=== PATIENT | male | born 1950 | race Caucasian/White ===

== ENCOUNTER → 2021-06-03 13:49 | Outpatient (BNVA) | payer MEDICARE, SELFPAY | PROVIDERS: PCP Family Medicine Adult Medicine; Visit Provider Family Medicine Adult Medicine | DX: E66.01 Morbid (severe) obesity due to excess calories (principal); Z68.41 Body mass index [BMI] 40.0-44.9, adult; I10 Essential (primary) hypertension; N40.0 Benign prostatic hyperplasia without lower urinary tract symptoms; M17.0 Bilateral primary osteoarthritis of knee; Z79.899 Other long term (current) drug therapy | CPT/HCPCS: 80053; 80061; 83036; 84443; 85025; G0103 ==

== ENCOUNTER → 2021-06-24 15:23 | Outpatient (BNVA) | payer MEDICARE, SELFPAY | PROVIDERS: PCP Family Medicine Adult Medicine; Referring Provider Family Medicine Adult Medicine; Visit Provider Specialist | DX: M17.0 Bilateral primary osteoarthritis of knee (principal) | CPT/HCPCS: 73560; 73565 ==

== ENCOUNTER → 2021-08-28 14:33 | Outpatient (BNVA) | payer MEDICARE, SELFPAY | PROVIDERS: PCP Family Medicine Adult Medicine; Visit Provider Family Medicine Adult Medicine | DX: M25.369 Other instability, unspecified knee (principal); N39.0 Urinary tract infection, site not specified; R73.03 Prediabetes; I10 Essential (primary) hypertension; E78.5 Hyperlipidemia, unspecified | CPT/HCPCS: 80053; 81000; 83036; 84443; 85025; G0103 ==

== ENCOUNTER → 2021-10-13 17:05 | Outpatient (BNVA) | payer MEDICARE, SELFPAY | PROVIDERS: PCP Family Medicine Adult Medicine; Visit Provider Urology | DX: N35.919 Unspecified urethral stricture, male, unspecified site (principal) | CPT/HCPCS: 81003; 87635 ==

== ENCOUNTER 2021-10-18 20:06 | Inpatient (IN) | payer MEDICARE, SELFPAY ==
--- NOTE | 2021-10-18 19:25 | XRR_ITS ---
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 Views: 1 view. COMPARISON: CR XR knees AP WB w BI lmt ORTH 06/24/2021 3:29 PM FINDINGS: Lungs: Unremarkable. No consolidation. Pleural spaces: Unremarkable. No pleural effusion. No pneumothorax. Heart/Mediastinum: Unremarkable. No cardiomegaly. Bones/joints: Unremarkable. XR/XR chest 1V portable [id number] IMPRESSION: No acute findings.
--- NOTE | 2021-10-18 19:25 | CTR_ITS ---
PROCEDURE INFORMATION: Exam: CT Head Without Contrast Exam date and time: 10/18/2021 7:25 PM Age: 71 years old Clinical indication: Weakness, extremity and weakness, facial; Right; Additional info: Symptoms of acute stroke TECHNIQUE: Imaging protocol: Computed tomography of the head without contrast. Radiation optimization: All CT scans at this facility use at least one of these dose optimization techniques: automated exposure control; mA and/or kV adjustment per patient size (includes targeted exams where dose is matched to clinical indication); or iterative reconstruction. Other technique: STROKE PROTOCOL was implemented. COMPARISON: CR XR knees AP WB w BI lmt ORTH 06/24/2021 3:29 PM RADIATION DOSE METRICS: Total DLP (mGy-cm): 928.27 FINDINGS: Brain: There is moderate cerebral atrophy. There is moderate diffuse heterogeneity of the white matter attenuation, consistent with chronic white matter ischemic changes. No intracranial hemorrhage. No midline shift of the brain. No intracranial mass. Cerebral ventricles: No ventriculomegaly. Paranasal sinuses: Visualized sinuses are unremarkable. No fluid levels. Mastoid air cells: Visualized mastoid air cells are well aerated. Bones/joints: Unremarkable. No acute fracture. Soft tissues: Unremarkable. CT/CT head wo con* [id number] IMPRESSION: Negative for acute intracranial abnormality. ASSESSMENT: ASPECTS ([place] Stroke Program Early CT Score) is 10.
--- NOTE | 2021-10-18 19:25 | CTR_ITS ---
PROCEDURE INFORMATION: Exam: CT Angiography Head With Contrast, Arteriography Exam date and time: 10/18/2021 7:25 PM Age: 71 years old Clinical indication: Patient HX: RT sided weakness, extremities and facial TECHNIQUE: Imaging protocol: Computed tomography angiography of the head with contrast. Exam focused on the arteries. 3D rendering (Not supervised by radiologist): MIP and/or 3D reconstructed images were created by the technologist. Radiation optimization: All CT scans at this facility use at least one of these dose optimization techniques: automated exposure control; mA and/or kV adjustment per patient size (includes targeted exams where dose is matched to clinical indication); or iterative reconstruction. Contrast material: VISI; Contrast volume: 95 ml; Contrast route: INTRAVENOUS (IV); COMPARISON: CT head wo con* [id number] 10/18/2021 7:25 PM RADIATION DOSE METRICS: Total DLP (mGy-cm): 2631.54 FINDINGS: ANTERIOR CIRCULATION: Right internal carotid artery: Unremarkable. Intracranial segment is patent with no significant stenosis. No aneurysm. Right middle cerebral artery: Unremarkable. No occlusion or significant stenosis. No aneurysm. Right anterior cerebral artery: Unremarkable. No occlusion or significant stenosis. No aneurysm. Left internal carotid artery: Unremarkable. Intracranial segment is patent with no significant stenosis. No aneurysm. Left middle cerebral artery: Unremarkable. No occlusion or significant stenosis. No aneurysm. Left anterior cerebral artery: Moderate severity short segment stenosis in the A2 segment of the left anterior cerebral artery. No occlusion. POSTERIOR CIRCULATION: Right vertebral artery: Unremarkable. No occlusion or significant stenosis. No aneurysm. Left vertebral artery: Unremarkable. No occlusion or significant stenosis. No aneurysm. Basilar artery: Unremarkable. No occlusion or significant stenosis. No aneurysm. Right posterior cerebral artery: Unremarkable. No occlusion or significant stenosis. No aneurysm. Left posterior cerebral artery: Unremarkable. No occlusion or significant stenosis. No aneurysm. Brain: No definite mass, mass effect, or midline shift. Cerebral ventricles: No ventriculomegaly. Bones/joints: Unremarkable. No acute fracture. Soft tissues: Unremarkable. PROCEDURE INFORMATION: Exam: CT Angiography Neck With Contrast Exam date and time: 10/18/2021 7:25 PM Age: 71 years old Clinical indication: Patient HX: RT sided weakness, extremities and facial TECHNIQUE: Imaging protocol: Computed tomography angiography of the neck with contrast. 3D rendering (Not supervised by radiologist): MIP and/or 3D reconstructed images were created by the technologist. Radiation optimization: All CT scans at this facility use at least one of these dose optimization techniques: automated exposure control; mA and/or kV adjustment per patient size (includes targeted exams where dose is matched to clinical indication); or iterative reconstruction. Contrast material: VISI; Contrast volume: 95 ml; Contrast route: INTRAVENOUS (IV); COMPARISON: CT head wo con* [id number] 10/18/2021 7:25 PM RADIATION DOSE METRICS: Total DLP (mGy-cm): 2631.54 FINDINGS: Right common carotid artery: No stenosis. No dissection or occlusion. Right internal carotid artery: No stenosis of the extracranial segment. No dissection or occlusion. Right external carotid artery: No occlusion or stenosis of the origin. Left common carotid artery: No stenosis. No dissection or occlusion. Left internal carotid artery: No stenosis of the extracranial segment. No dissection or occlusion. Left external carotid artery: No occlusion or stenosis of the origin. Right vertebral artery: No stenosis. No dissection or occlusion. Left vertebral artery: No stenosis. No dissection or occlusion. Soft tissues: Normal. No significant soft tissue swelling. Bones/joints: No acute fracture. CT/CT angio headneck* [id number] IMPRESSION: Negative for intracranial large arterial vessel occlusion. IMPRESSION: No carotid artery stenosis or occlusion. REFERENCES: NASCET CRITERIA. The degree of internal carotid artery stenosis is based on NASCET criteria. Normal is no stenosis. Mild is less than 50% stenosis. Moderate is 50-69% stenosis. Severe is 70% to 99% stenosis. Total occlusion is no detectable patent lumen.
--- NOTE | 2021-10-18 19:35 | ED_ITS ---
HPI - Neuro Symptoms/Deficit General: Chief Complaint: Neuro Symptoms/Deficit Stated Complaint: stroke History of Present Illness: HPI Narrative: 71-year-old gentleman with no prior history of stroke or coronary disease. He presents after having symptoms starting around 430 this afternoon. He began to get weak in his right arm, which persisted to some degree. After he got home, he had trouble speaking. He notes his thoughts were plain and normal, but he was having trouble expressing himself. The symptoms have resolved essentially now. Time: 19:20 Last Observed Normal: 16:30 Timing confirmed by: other Location: speech and right arm History of same: No Severity: moderate Quality: weak and improving Relieving factors: none Exacerbating factors: none Context: sudden onset On Anticoagulants: No Associated symptoms: Reports weakness; Deny chest pain, cough, diaphoresis, fevers/chills, headache(s), nausea, seizures, short of breath, syncope or vomiting Treatments Prior to Arrival: none Review of Systems Const: Denies: diaphoresis Card: Denies: chest pain or syncope GI: Denies: nausea or vomiting Neuro: Denies: headache(s) PFSH ED 2 PFSH: Medical History Anxiety about health BPH (benign prostatic hyperplasia) Dyslipidemia (high LDL; low HDL) Hypertension Knee gives out Morbid obesity with BMI of 40.0-44.9, adult Osteoarthritis of both knees Pre-diabetes Urethral stricture UTI (urinary tract infection) Surgical History Hx of appendectomy Family History Father , AT AGE 82 Brain tumor Mother , AT AGE 63 Bleeding disorder Other CAD (coronary artery disease) Cancer Diabetes Hyperlipidemia Hypertension Lung disease Psychiatric illness Stroke Social History Alcohol intake: never Marital status: Number of children: 3 Number of grandchildren: 4 Current occupational status: retired History of recent travel: No NIH stroke score NIHSS: Level Of Consciousness - 1a: 0 Level Of Consciousness Questions - 1b: Both Correct Level Of Consciousness Commands - 1c: Both Correct Best Gaze - 2: Normal Visual Posey - 3: No Visual Loss Facial Palsy - 4: Minor Paralysis Motor Arm Right - 5: No Drift Motor Arm Left - 5: No Drift Motor Leg Right - 6: Drift Motor Leg Left - 6: No Drift Limb Ataxia - 7: Absent Sensory - 8: Normal Best Language - 9: No Aphasia Dysarthia - 10: Normal Extinction And Inattention - 11: 0 Score: Total Score: 2 Physical Exam Const: COMMON NORMALS: no acute distress, patient oriented x3 and alert GENERAL APPEARANCE: cooperative HENMT: COMMON NORMALS: normocephalic and atraumatic HEAD & SCALP: normocephalic and atraumatic Eye: COMMON NORMALS: Equal, round and reactive pupils present, EOMs intact bilaterally and conjunctivae normal CONJUNCTIVA: Yes conjunctivae normal PUPIL: Yes Equal, round and reactive pupils present Chest: COMMONS NORMALS: normal inspection of the chest Resp: COMMON NORMALS: normal respiratory effort, No use of accessory muscles and clear to auscultation bilaterally AUSCULTATION: clear to auscultation bilaterally Cardio: COMMON NORMALS: regular rate and regular rhythm RATE: regular rate RHYTHM: regular rhythm GI: COMMON NORMALS: Normal to inspection, nondistended, normoactive bowel sounds present and Soft to palpation PALPATION: Yes Soft to palpation Neuro: COMMON NORMALS: patient oriented x3 SENSORIUM/ORIENTATION: Yes alert Course Consultations: Consultation #1: micha Time: 19:50 Consultation #2: micha Time: 20:41 Consultation #3: chris Time: 21:57 Vital Signs: Vital signs: Vital Signs Temperature 97.6 F 10/18/21 19:45 Pulse Rate 80 10/18/21 21:48 Respiratory Rate 21 H 10/18/21 21:48 Blood Pressure 126/70 10/18/21 21:48 Pulse Oximetry 98 10/18/21 21:48 MDM - Neuro Symptoms/Deficit MDM Narrative: Medical decision making narrative: On initial exam, symptoms are essentially resolved. He had an NIH of 2, 1 for very minor right lower extremity weakness, and right sided facial droop that is minor. He was able to walk to the bathroom using a walker, which he usually does. At approximately 8:39 PM I was called into the room. The patient had sudden loss of strength to the right upper extremity, right lower extremity and had expressive aphasia again. I spoke with neurology, and as we are still in the 4.5-hour window, it was decided to use TPA to treat this patient given ongoing symptoms his CT of the head is negative. CTA does not reveal an occlusion that is significant. His white blood cell count is 13.3 with no shift. His other laboratory is essentially unremarkable. His coag studies are normal. With return of significant stroke symptoms, it was felt that giving the patient the best caroline nce of recovery would be TPA at this point. Discussed again with family, including risks including hemorrhage and potential . The patient and his agreed to give the medication. 22:06 TPA is in. Symptoms are essentially resolved. He has back to a NIH of 2 or less. Blood pressure is 155/76. Heart rate 88 sinus. Saturation 95%. He will go to the ICU. Lab Data: Labs: Lab Results 10/18/21 10/18/21 10/18/21 18:00 18:00 18:00 WBC 13.3 10^3/uL H 10 ^3/uL (4.0-10.0) RBC 5.83 10^6/uL H 10 ^6/uL (4.1-5.3) Hgb 16.6 g/dL g/dL (11.7-16.6) Hct 51.9 % % (42.0-52.0) MCV 89.0 fl fl (80-94) MCH 28.5 pg pg (28.0-34.0) MCHC 32.0 g/dL g/dL (30.0-36.0) RDW 13.1 % % (12.1-15.1) Plt Count 352 10^3/cmm 10^3 /cmm (130-400) MPV 11.5 fL H fL (7.4-10.4) Neut % (Auto) 74.3 % % Lymph % (Auto) 14.6 % % [place] % (Auto) 7.4 % % Eos % (Auto) 2.1 % % Baso % (Auto) 0.8 % % Neut # (Auto) 9.89 10^3/uL H 10 ^3/uL (1.8-7.7) Lymph # (Auto) 1.9 10^3/uL 10^3/ uL (0.8-4.8) [place] # (Auto) 1.0 10^3/uL H 10^ 3/uL (0.2-0.9) Eos # (Auto) 0.3 10^3/uL 10^3/ uL (0.0-0.8) Baso # (Auto) 0.1 10^3/uL 10^3/ uL (0.0-0.1) Nucleated RBC % (a uto) 0 % % Nucleated RBCs # 0.0 /100WBC /100W BC PT INR APTT Sodium 139 mmol/L mmol/L (136-145) Potassium 4.1 mmol/L mmol/L (3.5-5.1) Chloride 98 mmol/L mmol/L (98-107) Carbon Dioxide 26 mmol/L mmol/L (22-29) Anion Gap 19.1 H (5-19) BUN 18 mg/dL mg/dL (8-23) Creatinine 1.0 mg/dL mg/dL (0.7-1.2) GFR Calculation Not Reportable Glucose 70 mg/dL mg/dL (65-115) Calculated Osmolal ity 288 mOsm/kg mOsm/ kg (285-295) Calcium 8.8 mg/dL mg/dL (8.5-10.5) Total Bilirubin 0.4 mg/dL mg/dL (0.15-1.2) AST 12 U/L U/L (0-40) ALT 13 U/L U/L (0-41) Alkaline Phosphata se 71 IU/L IU/L (40-130) Troponin T Baselin e 11 ng/L ng/L (0-15) Troponin T 120 Min [place] Delta Troponin T Total Protein 6.1 g/dL L g/dL (6.6-8.7) Albumin 4.0 g/dL g/dL (3.5-5.2) Globulin 2.1 g/dL g/dL (1.3-4.6) Urine Color Urine Appearance Urine pH Ur Specific Gravit y Urine Protein Urine Glucose (UA) Urine Ketones Urine Blood Urine Nitrate Urine Bilirubin Urine Urobilinogen Ur Leukocyte Di ase Urine Opiates Scre en Ur Barbiturates Sc reen Ur Phencyclidine S crn Ur Amphetamines Sc reen U Benzodiazepines Scrn Urine Cocaine Scre en U Marijuana (THC) Screen 10/18/21 10/18/21 10/18/21 19:50 19:50 19:50 WBC RBC Hgb Hct MCV MCH MCHC RDW Plt Count MPV Neut % (Auto) Lymph % (Auto) [place] % (Auto) Eos % (Auto) Baso % (Auto) Neut # (Auto) Lymph # (Auto) [place] # (Auto) Eos # (Auto) Baso # (Auto) Nucleated RBC % (a uto) Nucleated RBCs # PT 14.20 SECONDS SEC ONDS (12.1-14.9) INR 1.06 (0.8-1.2) APTT 28.0 SECONDS SECO NDS (23.9-36.7) Sodium Potassium Chloride Carbon Dioxide Anion Gap BUN Creatinine GFR Calculation Glucose Calculated Osmolal ity Calcium Total Bilirubin AST ALT Alkaline Phosphata se Troponin T Baselin e Troponin T 120 Min [place] Delta Troponin T Total Protein Albumin Globulin Urine Color Yellow (Yellow) Urine Appearance Clear (CLEAR) Urine pH 5 (5-7) Ur Specific Gravit y 1.020 (1.005-1.030) Urine Protein Neg (Negative) Urine Glucose (UA) Norm (Normal) Urine Ketones Negative (Negative) Urine Blood Neg (Negative) Urine Nitrate Negative (Negative) Urine Bilirubin 1+ H (Negative) Urine Urobilinogen 1 mg/dL H mg/dL (Negative) Ur Leukocyte Di ase Negative (Negative) Urine Opiates Scre en Negative ng/mL ng /mL (Negative) Ur Barbiturates Sc reen Positive ng/mL H ng/mL (Negative) Ur Phencyclidine S crn Negative ng/mL ng /mL (Negative) Ur Amphetamines Sc reen Negative ng/mL ng /mL (Negative) U Benzodiazepines Scrn Negative ng/mL ng /mL (Negative) Urine Cocaine Scre en Negative ng/mL ng /mL (Negative) U Marijuana (THC) Screen Negative ng/mL ng /mL (Negative) 10/18/21 20:06 WBC RBC Hgb Hct MCV MCH MCHC RDW Plt Count MPV Neut % (Auto) Lymph % (Auto) [place] % (Auto) Eos % (Auto) Baso % (Auto) Neut # (Auto) Lymph # (Auto) [place] # (Auto) Eos # (Auto) Baso # (Auto) Nucleated RBC % (a uto) Nucleated RBCs # PT INR APTT Sodium Potassium Chloride Carbon Dioxide Anion Gap BUN Creatinine GFR Calculation Glucose Calculated Osmolal ity Calcium Total Bilirubin AST ALT Alkaline Phosphata se Troponin T Baselin e Troponin T 120 Min [place] 9.85 ng/L ng/L (0-15) Delta Troponin T Not Reportable Total Protein Albumin Globulin Urine Color Urine Appearance Urine pH Ur Specific Gravit y Urine Protein Urine Glucose (UA) Urine Ketones Urine Blood Urine Nitrate Urine Bilirubin Urine Urobilinogen Ur Leukocyte Di ase Urine Opiates Scre en Ur Barbiturates Sc reen Ur Phencyclidine S crn Ur Amphetamines Sc reen U Benzodiazepines Scrn Urine Cocaine Scre en U Marijuana (THC) Screen Critical Care Time Critical Care Time: Critical Care Time: Yes Total Critical Care Time: 65 Attestation: This case had a high probability of a clinically significant, sudden, or life threatening deterioration of this patient's condition which required my full and direct attention, intervention and personal management. Time excludes any procedures performed on the patient. Discharge Plan Discharge Patient Disposition: Admitted As Inpatient Admit Provider: Romina Núñez Clinical Impression: Cerebrovascular accident Qualifiers: CVA mechanism: thrombosis Precerebral and cerebral artery: middle cerebral anali ry Laterality of affected vessel: left Qualified Code(s): I63.312 - Cerebral infarction due to thrombosis of left middle cerebral artery Condition: Stable Coding Level of Care Code ED Sales And Service Technician for g Fwd Exam Detailed
[2021-10-18] MEDS: iodixanol 320 mg/mL 100mL Btl IV (19:39)
[2021-10-18 19:45] VITALS: BP 145/92; PULSE 70; RESP 18; TEMP 36.4; O2SAT 98; BMI 44.6
[2021-10-18 20:07] LABS: Basophils # 0.1 10^3/uL (0.0-0.1); Basophils % 0.8 %; Eosinophils # 0.3 10^3/uL (0.0-0.8); Eosinophils % 2.1 %; Hematocrit 51.9 % (42.0-52.0); Hemoglobin 16.6 g/dL (11.7-16.6); Lymphocytes # 1.9 10^3/uL (0.8-4.8); Lymphocytes % 14.6 %; Mean Corpuscular Hemoglobin 28.5 pg (28.0-34.0); Mean Platelet Volume 11.5 fL (7.4-10.4); Monocytes % 7.4 %; Neutrophils # 9.89 10^3/uL (1.8-7.7); Neutrophils % 74.3 %; Nucleated Red Blood Cells % 0 %; Platelet Count 352 10^3/cmm (130-400); Red Blood Count 5.83 10^6/uL (4.1-5.3); Red Cell Distribution Width 13.1 % (12.1-15.1); White Blood Count 13.3 10^3/uL (4.0-10.0)
[2021-10-18 20:10] LABS: Add Urine Microscopic? NO; Charge for UA Resulting for Rev
[2021-10-18 20:15] LABS: Bilirubin Urine 1+ (Negative); Blood Urine Neg (Negative); Glucose Urine UA Norm (Normal); Ketones Urine Negative (Negative); Leukocyte Esterase Urine Negative (Negative); Nitrate Urine Negative (Negative); Protein Urine Neg (Negative); Urine Appearance Clear (CLEAR); Urine Color Yellow (Yellow); Urobilinogen Urine 1 mg/dL (Negative); pH Urine 5 (5-7)
[2021-10-18 20:22] LABS: Amphetamines Screen Urine Negative (Negative); Barbiturates Screen Urine Positive (Negative); Benzodiazepines Screen Urine Negative (Negative); Cocaine Screen Urine Negative (Negative); Opiate Screen Urine Negative (Negative); PCP Screen Urine Negative (Negative); THC Screen Urine Negative (Negative)
[2021-10-18 20:27] LABS: INR 1.06 (0.8-1.2)
[2021-10-18 20:28] LABS: Troponin 5 2HR 9.85 ng/L (0-15)
[2021-10-18 20:36] LABS: Troponin(5th) Baseline 11 ng/L (0-15)
[2021-10-18 20:37] LABS: Alanine Aminotransferase 13 U/L (0-41); Alkaline Phosphatase 71 IU/L (40-130); Anion Gap 19.1 (5-19); Aspartate Amino Transferase 12 U/L (0-40); Blood Urea Nitrogen 18 mg/dL (8-23); Calcium 8.8 mg/dL (8.5-10.5); Carbon Dioxide 26 mmol/L (22-29); Chloride 98 mmol/L (98-107); Globulin 2.1 g/dL (1.3-4.6); Glucose 70 mg/dL (65-115); Osmolality Calculated 288 mOsm/kg (285-295); Potassium 4.1 mmol/L (3.5-5.1); Sodium 139 mmol/L (136-145); Total Bilirubin 0.4 mg/dL (0.15-1.2); Total Protein 6.1 g/dL (6.6-8.7)
[2021-10-18 21:10] VITALS: BP 153/75; PULSE 69; RESP 20; O2SAT 96
[2021-10-18 21:25] VITALS: BP 116/74; PULSE 70; RESP 18; O2SAT 97
[2021-10-18] MEDS: sodium chloride 0.9% 500 ML 999 ML IV (21:25)
--- NOTE | 2021-10-18 21:26 | ECG_ITS ---
[facility] Test Date: 2021-10-18 Pat Name: Olegario Bai Department: Room: Gender: Male Rn Progressive Care: : 1950 Requested By: Bienvenido Julian Order Number: [id number] Reading MD: RAFAEL MILLAN Measurements Intervals [place] Rate: 66 P: 53 NH: 157 QRS: -10 QRSD: 98 T: 29 QT: 409 QTc: 431 Interpretive Statements SINUS RHYTHM VOLTAGE CRITERIA FOR LVH [MEETS CRITERIA IN ONE OF: R(aVL), S(V1), R(V5), R(V5/V6)+S(V1)] No previous ECG available for comparison Electronically Signed On 10-19-2021 19:04:58 EM PHYSICIAN by RAFEAL MILLAN [id number]
[2021-10-18 21:48] VITALS: BP 126/70; PULSE 80; RESP 21; O2SAT 98
[2021-10-18 22:00] VITALS: BP 153/96; PULSE 84; RESP 22; O2SAT 97
--- NOTE | 2021-10-18 22:55 | PM.HP ---
Providers/Chief Complaint Admitting Physician: Romina Núñez MD Primary Care Provider: Kenny Adams MD Chief Complaint: stroke History of Present Illness Olegario Bai is a 71 year old male with PMH HTN presented to ER with weakness in his right arm, motor aphasia starting at 4:30 pm which was transient and then started to improve. AT Er presentation NIHSS noted to be 2. CT head and CTA head without acute stroke or thrombus. At approximately 8:39 PM he again started to experience sudden loss of strength to the right upper extremity, right lower extremity and had expressive aphasia again. Neurology was consulted and since patient was still in 4.5-hour window, he received tPA, completed at ~10pm. His symptoms then improved except for mild facial droop. Blood pressure 126/70, HR 80. Patient is being admitted to ICU level of care for post tPA monitoring. Review of Systems General: Reports: 10 or more systems reviewed and unremarkable except in HPI and below Const: Denies: fever(s), chills or body aches Eyes: Denies: change in vision, blurry vision or photophobia ENMT: Reports: hoarseness; Denies: throat pain, enlarged tonsils, odynophagia or nasal congestion Card: Denies: chest pain, palpitations, irregular heart rhythm, edema, swelling of feet/ankles, lightheadedness, pre-syncope, dyspnea on exertion or orthopnea Resp: Denies: dyspnea, productive cough, non-productive cough, wheezing, stridor, pain on inspiration, change in phlegm color, hemoptysis or chest congestion GI: Denies: abdominal pain, nausea, vomiting, hematemesis, coffee ground emesis, dysphagia, heartburn, diarrhea, constipation, GI cramping, change in stool character, hematochezia or melena : Denies: flank pain, dysuria, urinary frequency, urinary urgency, urinary hesitancy or hematuria Musc: Denies: neck pain, back pain, extremity pain, joint swelling, joint warmth or deformity Neuro: Denies: headache(s), numbness in extremities, weakness in extremities, sensory changes, difficulty walking, frequent falls, dizziness, vertigo, behavioral changes, Slurred speech present or seizure-like activity Psych: Denies: anxiety, depression, suicidal ideation or homicidal ideation Endo: Denies: polyuria, polydipsia, tired all the time, cold intolerance or hot flashes Jez/Lymph: Denies: easy bruising or easy bleeding Medications/Allergies Home Medications Medication Instructions Recorded Confirmed Last Taken Type primidone 50 mg tablet 150 mg PO BEDTIME 02/23/21 10/18/21 Unknown History furosemide 20 mg tablet 20 mg PO DAILY #30 tab 06/03/21 10/18/21 Unknown Rx lisinopril 20 1 tab PO DAILY #30 tab 06/03/21 10/18/21 Unknown Rx mg-hydrochlorothiazide 12.5 mg tablet niacin 500 mg tablet 500 mg PO DAILY #30 tab 08/28/21 10/18/21 Unknown Rx tamsulosin 0.4 mg capsule 0.4 mg PO DAILY 90 Days #90 cap 08/28/21 10/18/21 Unknown Rx Allergies Allergy/AdvReac Type Severity Reaction Status Date / Time No Known Allergies Allergy Verified 10/18/21 20:02 PFSH Acute PFSH: Medical History Anxiety about health BPH (benign prostatic hyperplasia) Dyslipidemia (high LDL; low HDL) Hypertension Knee gives out Morbid obesity with BMI of 40.0-44.9, adult Osteoarthritis of both knees Pre-diabetes Urethral stricture UTI (urinary tract infection) Surgical History Hx of appendectomy Family History Father , AT AGE 82 Brain tumor Mother , AT AGE 63 Bleeding disorder Other CAD (coronary artery disease) Cancer Diabetes Hyperlipidemia Hypertension Lung disease Psychiatric illness Stroke Social History Alcohol intake: never Marital status: Number of children: 3 Number of grandchildren: 4 Current occupational status: retired History of recent travel: No Vitals/I&O/Wt Last Vital Signs Temp 97.6 F 10/18/21 19:45 Pulse 80 10/18/21 21:48 Resp 21 H 10/18/21 21:48 BP 126/70 10/18/21 21:48 Pulse Ox 98 10/18/21 21:48 Weight last 48 hrs Weight 141.294 kg Physical Exam Narrative: EXAM NARRATIVE: General: No acute distress, AO x2 HEENT: PERRLA, pupils bilaterally equal and reactive, pallors not present Chest: Normal vesicular breath sounds, no added sounds, equal good air entry bilaterally CVS: S1-S2 regular, no murmurs, no tachycardia, no gallops, no rubs Abdomen: Soft, nontender, no organomegaly, bowel sounds present Neuro: No focal deficits, no facial deformity, AO x3, power 5/5 in all limbs Data : 10/18/21 18:00 10/18/21 18:00 Other Labs: Laboratory Results WBC 13.3 10^3/uL (4.0-10.0) H 10/18/21 18:00 RBC 5.83 10^6/uL (4.1-5.3) H 10/18/21 18:00 Hgb 16.6 g/dL (11.7-16.6) 10/18/21 18:00 Hct 51.9 % (42.0-52.0) 10/18/21 18:00 MCV 89.0 fl (80-94) 10/18/21 18:00 MCH 28.5 pg (28.0-34.0) 10/18/21 18:00 MCHC 32.0 g/dL (30.0-36.0) 10/18/21 18:00 RDW 13.1 % (12.1-15.1) 10/18/21 18:00 Plt Count 352 10^3/cmm (130-400) 10/18/21 18:00 MPV 11.5 fL (7.4-10.4) H 10/18/21 18:00 Neut % (Auto) 74.3 % 10/18/21 18:00 Lymph % (Auto) 14.6 % 10/18/21 18:00 [place] % (Auto) 7.4 % 10/18/21 18:00 Eos % (Auto) 2.1 % 10/18/21 18:00 Baso % (Auto) 0.8 % 10/18/21 18:00 Neut # (Auto) 9.89 10^3/uL (1.8-7.7) H 10/18/21 18:00 Lymph # (Auto) 1.9 10^3/uL (0.8-4.8) 10/18/21 18:00 [place] # (Auto) 1.0 10^3/uL (0.2-0.9) H 10/18/21 18:00 Eos # (Auto) 0.3 10^3/uL (0.0-0.8) 10/18/21 18:00 Baso # (Auto) 0.1 10^3/uL (0.0-0.1) 10/18/21 18:00 Nucleated RBC % (auto) 0 % 10/18/21 18:00 Nucleated RBCs # 0.0 /100WBC 10/18/21 18:00 PT 14.20 SECONDS (12.1-14.9) 10/18/21 19:50 INR 1.06 (0.8-1.2) 10/18/21 19:50 APTT 28.0 SECONDS (23.9-36.7) 10/18/21 19:50 Sodium 139 mmol/L (136-145) 10/18/21 18:00 Potassium 4.1 mmol/L (3.5-5.1) 10/18/21 18:00 Chloride 98 mmol/L (98-107) 10/18/21 18:00 Carbon Dioxide 26 mmol/L (22-29) 10/18/21 18:00 Anion Gap 19.1 (5-19) H 10/18/21 18:00 BUN 18 mg/dL (8-23) 10/18/21 18:00 Creatinine 1.0 mg/dL (0.7-1.2) 10/18/21 18:00 GFR Calculation Not Reportable 10/18/21 18:00 Glucose 70 mg/dL (65-115) 10/18/21 18:00 Calculated Osmolality 288 mOsm/kg (285-295) 10/18/21 18:00 Calcium 8.8 mg/dL (8.5-10.5) 10/18/21 18:00 Total Bilirubin 0.4 mg/dL (0.15-1.2) 10/18/21 18:00 AST 12 U/L (0-40) 10/18/21 18:00 ALT 13 U/L (0-41) 10/18/21 18:00 Alkaline Phosphatase 71 IU/L (40-130) 10/18/21 18:00 Troponin T Baseline 11 ng/L (0-15) 10/18/21 18:00 Troponin T 120 Minute 9.85 ng/L (0-15) 10/18/21 20:06 Delta Troponin T Not Reportable 10/18/21 20:06 Total Protein 6.1 g/dL (6.6-8.7) L 10/18/21 18:00 Albumin 4.0 g/dL (3.5-5.2) 10/18/21 18:00 Globulin 2.1 g/dL (1.3-4.6) 10/18/21 18:00 Urine Color Yellow (Yellow) 10/18/21 19:50 Urine Appearance Clear (CLEAR) 10/18/21 19:50 Urine pH 5 (5-7) 10/18/21 19:50 Ur Specific [place] 1.020 (1.005-1.030) 10/18/21 19:50 Urine Protein Neg (Negative) 10/18/21 19:50 Urine Glucose (UA) Norm (Normal) 10/18/21 19:50 Urine Ketones Negative (Negative) 10/18/21 19:50 Urine Blood Neg (Negative) 10/18/21 19:50 Urine Nitrate Negative (Negative) 10/18/21 19:50 Urine Bilirubin 1+ (Negative) H 10/18/21 19:50 Urine Urobilinogen 1 mg/dL (Negative) H 10/18/21 19:50 Ur Leukocyte Esterase Negative (Negative) 10/18/21 19:50 Urine Opiates Screen Negative ng/mL (Negative) 10/18/21 19:50 Ur Barbiturates Screen Positive ng/mL (Negative) H 10/18/21 19:50 Ur Phencyclidine Scrn Negative ng/mL (Negative) 10/18/21 19:50 Ur Amphetamines Screen Negative ng/mL (Negative) 10/18/21 19:50 U Benzodiazepines Scrn Negative ng/mL (Negative) 10/18/21 19:50 Urine Cocaine Screen Negative ng/mL (Negative) 10/18/21 19:50 U Marijuana (THC) Screen Negative ng/mL (Negative) 10/18/21 19:50 Impressions Chest X-Ray 10/18/21 19:25 IMPRESSION: No acute findings. Head CT 10/18/21 19:25 IMPRESSION: Negative for acute intracranial abnormality. ASSESSMENT: ASPECTS (Josie Stroke Program Early CT Score) is 10. Head/Neck CTA 12/19/21 19:25 IMPRESSION: Negative for intracranial large arterial vessel occlusion. IMPRESSION: No carotid artery stenosis or occlusion. REFERENCES: NASCET CRITERIA. The degree of internal carotid artery stenosis is based on NASCET criteria. Normal is no stenosis. Mild is less than 50% stenosis. Moderate is 50-69% stenosis. Severe is 70% to 99% stenosis. Total occlusion is no detectable patent lumen. A&P Assessment and plan (1) Cerebrovascular accident: Admit to ICU for post tPA monitoring Patient presenting with acute CVA, CT head and CTA without acute occlusion Received tPA this evening with improvement in symptoms Hold antiplatelets over the next 24 hrs BP goal <180/105 mmhg start atorvastatin 40mg po daily check lipid panel with am labs echocardiogram ordered, pending [address] head on 10/19 Status: Acute Qualifiers: CVA mechanism: thrombosis Laterality of affected vessel: left Precerebral and cerebral artery: middle cerebral artery Qualified Code(s): I63.312 - Cerebral infarction due to thrombosis of left middle cerebral artery Attestations Medical Necessity Statement*: anticipate >2midnight stay for acute CVA, post tPA monitoring Coding Level of Care Code Acute 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
[2021-10-19 01:21] LABS: Estmated Average Glucose 137; Hemoglobin A1C 6.4 % (4.0-6.0)
--- NOTE | 2021-10-19 01:26 | ECG_ITS ---
[facility] Test Date: 2021-10-19 Pat Name: Olegario Bai Department: Room: ED Gender: Male Director Business Development: : 1950 Requested By: Bienvenido Julian Order Number: [id number] Reading MD: RAFAEL MILLAN Measurements Intervals [place] Rate: 64 P: 58 AR: 167 QRS: -8 QRSD: 97 T: 36 QT: 410 QTc: 425 Interpretive Statements SINUS RHYTHM POSSIBLE RIGHT VENTRICULAR CONDUCTION DELAY [RSR (QR) IN V1/V2] MODERATE VOLTAGE CRITERIA FOR LVH, CONSIDER NORMAL VARIANT [MEETS CRITERIA IN ONE OF: R(aVL), S(V1), R(V5), R(V5/V6)+S(V1)] Compared to ECG 10/18/2021 21:34:50 No significant changes Electronically Signed On 10-19-2021 19:04:52 RESEARCH CLERK by RAFAEL MILLAN [email or web address]
[2021-10-19 01:33] LABS: Troponin 5 6HR 16.01 ng/L (0-15); Troponin 5 6HR Delta 5.01 ng/L (0-12)
[2021-10-19 01:36] LABS: Chol HDL Ratio 4.07 mg/dL (1.0-5.00); Cholesterol 167 mg/dL (0-200); HDL Cholesterol 41 mg/dL (60-100); LDL Cholesterol Calculated 110 mg/dL (50-129); LDL HDL Ratio 2.68 RATIO (0.00-3.22); Triglycerides 80 mg/dL (0-150)
[2021-10-19] MEDS: atorvastatin 40 mg Tablet 20 MG PO ×2 (04:30→21:16)
--- NOTE | 2021-10-19 06:00 | USCV_ITS ---
Olegario Bai Age: 71 Gender: M : 1950 Exam Date: 10/19/2021 06:50 Ordering Phys: Romina Núñez MD Technologist: Ellyn Arzola Exam Location: [facility] [place] Indication: CVA, S/P TPA BP: 135 / 76 HR: 61 Rhythm: Sinus Technical Quality: Technically difficult study MEASUREMENTS (Male / Female) Normal Values 2D ECHO LV Diastolic Diameter PLAX 5.0 cm 4.2 - 5.9 / 3.9 - 5.3 cm LV Systolic Diameter PLAX 3.2 cm IVS Diastolic Thickness 1.8 cm 0.6 - 1.0 / 0.6 - 0.9 cm IVS Systolic Thickness 2.3 cm LVPW Diastolic Thickness 1.7 cm 0.6 - 1.0 / 0.6 - 0.9 cm LVPW Systolic Thickness 2.1 cm LVOT Diameter 2.0 cm LV Ejection Fraction 2D Teich 66.0 % LV Ejection Fraction MOD 2C 64.2 % LV Ejection Fraction 2C AL 63.0 % LA Diameter 4.1 cm LA Width 3.3 cm LA Height 5.4 cm RA Width 2.7 cm RA Height 4.3 cm Aorta at Sinotubular Diameter 2.8 cm M-MODE Aortic Annulus Diameter 3.1 cm LA Ao Ratio MM 1.2 MV E Point Septal Separation 0.6 cm DOPPLER AV Peak Velocity 114.0 cm/s LVOT Peak Velocity 87.3 cm/s AV Area Cont Eq vti 2.6 cm squared AV Area Cont Eq pk 2.4 cm squared MV Peak Velocity 77.0 cm/s MV Area PHT 3.1 cm squared Mitral E to A Ratio 0.8 MV E' Velocity 58.0 cm/s PV Peak Velocity 85.0 cm/s RV Acceleration Time 0.1 s RV Ejection Time 0.3 s RV AcT/ET 0.3 FINDINGS Left Ventricle Normal left ventricular size, systolic function and wall thickness, with no regional wall motion abnormalities. Left ventricular ejection fraction is estimated at 60 %. Normal diastolic function. No evidence of left ventricular apical thrombus. Right Ventricle Normal right ventricular size and low normal systolic function. RVSP could not be calculated due to incomplete tricuspid regurgitation velocity profile. Right Atrium Normal right atrial size. Left Atrium Normal left atrial size. Mitral Valve Structurally normal mitral valve. No mitral valve stenosis. Trace mitral valve regurgitation. Aortic Valve Structurally normal trileaflet aortic valve. No aortic valve stenosis. No aortic valve regurgitation. Tricuspid Valve Tricuspid valve not well visualized. Structurally normal tricuspid valve. Pulmonic Valve Pulmonic valve not well visualized. Pericardium No pericardial effusion. Aorta Normal size aortic root and proximal ascending aorta. CONCLUSIONS 1. This is a technically difficult study. Ultrasound enhancing agent was used per protocol. 2. Normal left ventricular size, systolic function and wall thickness, with no regional wall motion abnormalities. Left ventricular ejection fraction is estimated at 60 %. Normal diastolic function. No evidence of left ventricular apical thrombus. 3. No significant valvular abnormality based on the study. 4. No prior similar studies to compare. Kacey Mclaughlin MD (Electronically Signed) Final Date: 19 October 2021 12:40 S
[2021-10-19 06:35] VITALS: BP 135/76; RESP 15; O2SAT 96
[2021-10-19] MEDS: perflutren protein-a microsphr 0.22 mg/mL SDV 3 mL IV (07:24)
--- NOTE | 2021-10-19 08:16 | PM.PN ---
Subjective Subjective: Interval history: Olegario reports he is doing okay. Denies any weakness. Reports no headache. History and physical reviewed. Received TPA yesterday, around 8 PM or slightly later. Medications: Reviewed: Yes Vitals/I&O/Wt Last Vital Signs Temp 97.6 F 10/18/21 19:45 Pulse 84 10/18/21 22:00 Resp 15 10/19/21 06:35 BP 135/76 10/19/21 06:35 Pulse Ox 96 10/19/21 06:35 Weight last 48 hrs Weight 141.294 kg Physical Exam Narrative: EXAM NARRATIVE: General exam no distress Neuro no obvious focal deficits Neck is supple Cardiovascular regular rate and rhythm without murmur Lungs few coarse breath sounds at the bases, clearing with coughing Abdomen is soft, positive bowel sounds Extremities no cyanosis clubbing or edema Data : 10/18/21 18:00 10/18/21 18:00 A&P Assessment and plan (1) Cerebrovascular accident: Admit to ICU for post tPA monitoring Patient presenting with acute CVA, CT head and CTA without acute occlusion Received tPA at approximately 8 PM October 18 Hold antiplatelets over the next 24 hrs BP goal <180/105 mmhg Continue atorvastatin Permissive hypertension up to the point above check lipid panel with am labs Await echocardiogram CT head today around 1600, noncontrast Cautious hydration considering he is on Lasix. May need event monitor on discharge. Follow-up with neurology on discharge. Status: Acute Qualifiers: CVA mechanism: thrombosis Laterality of affected vessel: left Precerebral and cerebral artery: middle cerebral artery Qualified Code(s): I63.312 - Cerebral infarction due to thrombosis of left middle cerebral artery Additional A&P Information Hypertension. Allow permissive hypertension currently. BPH. Continue Flomax Attestations Medical Necessity Statement*: Needs continued hospitalization, for close monitoring following TPA administration for acute CVA. Coding Level of Care Code Acute [employer] for [facility] Diagnoses Cerebrovascular accident I63.312 CVA mechanism: thrombosis Laterality of affected vessel: left Precerebral and cerebral artery: middle cerebral artery
--- NOTE | 2021-10-19 08:40 | PC.PHAR ---
Addendum entered by Radha Weinstein 10/19/21 08:41: daughter states the pt is no longer taking bupropion er 200mg daily ext med history shows last filled 08/04/21 30d/s Original Note: pt and pts daughter yesenia [phone] verified the pts medications-notes are made in the pharmacy comments
[2021-10-19] MEDS: FUROsemide 20 mg Tablet PO (09:06)
[2021-10-19] MEDS: tamsulosin 0.4 mg Capsule PO (09:07)
[2021-10-19] MEDS: sodium chloride 0.9% 1,000 ML 50 ML IV (09:10)
--- NOTE | 2021-10-19 16:00 | CTR_ITS ---
PROCEDURE INFORMATION: Exam: CT Head Without Contrast Exam date and time: 10/19/2021 4:00 PM Age: 71 years old Clinical indication: Screening exam; Additional info: 24 hr post tpa TECHNIQUE: Imaging protocol: Computed tomography of the head without contrast. Radiation optimization: All CT scans at this facility use at least one of these dose optimization techniques: automated exposure control; mA and/or kV adjustment per patient size (includes targeted exams where dose is matched to clinical indication); or iterative reconstruction. COMPARISON: CT head wo con* [id number] 10/18/2021 7:25 PM RADIATION DOSE METRICS: Total DLP (mGy-cm): 1054.33 FINDINGS: Brain: No hemorrhage. Moderate diffuse cerebral atrophy and sequela of chronic small vessel ischemic disease. No mass effect. No edema. Cerebral ventricles: No ventriculomegaly. Paranasal sinuses: Visualized sinuses are unremarkable. No fluid levels. Mastoid air cells: Visualized mastoid air cells are well aerated. Bones/joints: Unremarkable. No acute fracture. Soft tissues: Unremarkable. CT/CT head wo con* [id number] IMPRESSION: Stable exam, no acute intracranial abnormality.
--- NOTE | 2021-10-19 17:44 | PM.SAN ---
Stroke Alert Activation ED Arrival Date: 10/18/21 ED Arrival Time: 19:20 ED Physican at Bedside: 19:20 Last Known Normal/at Baseline: 2-3 hours ago Other Last Known Well Infomation: Telemetry stroke consult This is a 71-year-old man with no previous history of stroke who developed right-sided weakness at 4:30 in the afternoon and arrived in the emergency department at 7:30 in the evening. By that time he had recovered. His CT angiogram was negative. He was in normal sinus rhythm. Dr. Hui called me for recommendation and because the patient had experienced severe right-sided weakness and transient expressive aphasia I recommended hospitalization overnight to watch for cardiac arrhythmia and check an echocardiogram and observe him. Dr. Hui called me again at 2040. The patient was still within the 4-1/2-hour window for TPA treatment for stroke and although he had been neurologically normal on previous exam, he now had significant right-sided weakness and expressive aphasia. We agreed that the patient should receive TPA. Dr. Hui obtained informed consent from the patient and his and administered TPA, completed by 2205. His stroke scale score went back to normal. Stroke Alert Activated by: Stroke Alert Activation Date: 10/18/21 Stroke Alert Activation Time: 19:50 Stroke MD @ Bedside Time: 19:50 NIH Stroke Scale Time: 19:45 NIH Stroke Scale Score: NIH Stroke Scale Score: 1 Stroke Alert Data/Treatment Time to CT of Head: 19:20 CT Results Time: 19:45 CT Impression: Normal Stroke Risk Factors: hypertension and obesity tPA Started Time: tPA Started - Time: 21:06 tPA Admin Prior to Arrival: No Standardized Stroke Orders Used: Yes Critical Care Time Critical Care Time: less than 30 mins A&P Assessment and plan (1) Left acute arterial ischemic stroke, MCA (middle cerebral artery): 71-year-old man with hypertension and morbid obesity who presented with a left middle cerebral artery TIA characterized by expressive aphasia and right hemiparesis that completely cleared before he arrived in our emergency department. His symptoms recurred while he was there and we were able to initiate TPA shortly after recrudescence of his symptoms and still within 4-1/2 hours of onset of his previous symptoms. He is admitted for stroke work-up which should include an echocardiogram and probably a 20-day heart monitor after he leaves the hospital. He can go home if his symptoms do not recur and I will be glad to see him in the office within 2 weeks. Continue a atorvastatin. Start him on antiplatelet therapy 24 hours after TPA. 3 weeks of Plavix//aspirin overlap. 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
[2021-10-19 19:00] VITALS: BP 155/71; PULSE 84; RESP 20; O2SAT 97
[2021-10-19 20:43] VITALS: BP 152/89; PULSE 61; RESP 17; O2SAT 98
[2021-10-19] MEDS: primidone 50 mg Tablet 150 MG PO (21:16)
[2021-10-19 21:41] VITALS: BP 134/63; PULSE 60; RESP 16; O2SAT 98
[2021-10-19 22:56] VITALS: BP 167/71; PULSE 74; RESP 16; TEMP 36.6; O2SAT 99
[2021-10-20] VITALS (7 sets, daily range): BP systolic 130–162; BP diastolic 71–88; PULSE 65–85; RESP 16–20; TEMP 36.8–37.1; O2SAT 92–98
[2021-10-20] MEDS: sodium chloride 0.9% 1,000 ML 50 ML IV (05:49)
[2021-10-20 06:14] LABS: Basophils # 0.1 10^3/uL (0.0-0.1); Basophils % 0.7 %; Eosinophils # 0.4 10^3/uL (0.0-0.8); Eosinophils % 3.3 %; Hematocrit 44.8 % (42.0-52.0); Hemoglobin 14.5 g/dL (11.7-16.6); Lymphocytes # 1.8 10^3/uL (0.8-4.8); Lymphocytes % 15.6 %; Mean Corpuscular HGB Conc 32.4 g/dL (30.0-36.0); Mean Corpuscular Hemoglobin 28.6 pg (28.0-34.0); Mean Corpuscular Volume 88.4 fl (80-94); Monocytes # 0.7 10^3/uL (0.2-0.9); Monocytes % 6.3 %; Neutrophils # 8.43 10^3/uL (1.8-7.7); Neutrophils % 73.3 %; Nucleated Red Blood Cells % 0 %; Platelet Count 271 10^3/cmm (130-400); Red Blood Count 5.07 10^6/uL (4.1-5.3); White Blood Count 11.5 10^3/uL (4.0-10.0)
[2021-10-20 06:32] LABS: Alanine Aminotransferase 7 U/L (0-41); Albumin Level 3.3 g/dL (3.5-5.2); Alkaline Phosphatase 55 IU/L (40-130); Aspartate Amino Transferase 9 U/L (0-40); Blood Urea Nitrogen 18 mg/dL (8-23); Calcium 8.1 mg/dL (8.5-10.5); Carbon Dioxide 26 mmol/L (22-29); Chloride 105 mmol/L (98-107); Globulin 2.3 g/dL (1.3-4.6); Glucose 86 mg/dL (65-115); Osmolality Calculated 297 mOsm/kg (285-295); Sodium 143 mmol/L (136-145); Total Bilirubin 0.4 mg/dL (0.15-1.2); Total Protein 5.6 g/dL (6.6-8.7)
[2021-10-20] MEDS: FUROsemide 20 mg Tablet PO (10:25)
[2021-10-20] MEDS: clopidogrel 75 mg Tablet PO (10:25)
[2021-10-20] MEDS: tamsulosin 0.4 mg Capsule PO (10:25)
[2021-10-20] MEDS: aspirin 81 mg EC Tablet PO (10:25)
--- NOTE | 2021-10-20 11:03 | P.PN_ITS ---
Subjective Subjective: Interval history: Olegario was initially doing well when I 1st visited him this morning. I was called back by the nurse that he reported some arm heaviness earlier this morning. Family reports his speech was somewhat stuttered. This is since gone away by the time of my evaluation and no deficit was present. He had not yet received his Plavix and aspirin. He was not hooked up to telemetry. He denied any chest pain. Medications: Reviewed: Yes Vitals/I&O/Wt Last Vital Signs Temp 98.2 F 10/20/21 07:22 Pulse 82 10/20/21 07:22 Resp 16 10/20/21 07:22 BP 130/79 10/20/21 07:22 Pulse Ox 96 10/20/21 07:22 10/19/21 10/20/21 10/20/21 22:59 06:59 14:59 Intake Total 1240 / 1240 240 / 240 Balance 1240 / 1240 240 / 240 Weight last 48 hrs Weight 141.294 kg Physical Exam Narrative: EXAM NARRATIVE: General exam no distress Neuro no obvious focal deficits Neck is supple Cardiovascular regular rate and rhythm without murmur Lungs few coarse breath sounds at the bases, clearing with coughing Abdomen is soft, positive bowel sounds Extremities no cyanosis clubbing or edema Data : 10/20/21 05:18 10/20/21 05:18 A&P Assessment and plan (1) Cerebrovascular accident: Patient presenting with acute CVA, CT head and CTA without acute occlusion Received tPA at approximately 8 PM October 18 placed on Plavix and aspirin. Received his 1st dose this morning, but it was after his recurrent event of arm heaviness and concerns from family of stuttered speech Continue atorvastatin Permissive hypertension echocardiogram demonstrated no thrombus, normal LV function repeat CT head showed no bleed secondary to recurrent symptoms, I discussed with neurology and we will initiate aspirin and Eliquis. He had no significant flow-limiting narrowing/cholesterol plaque on CTA Hold discharge until tomorrow to make sure no recurrent events occur Telemetry will be hooked up change Plavix and aspirin to aspirin and Eliquis. Risks discussed. Follow-up with neurology on discharge. Status: Acute Qualifiers: CVA mechanism: thrombosis Laterality of affected vessel: left Precerebral and cerebral artery: middle cerebral artery Qualified Code(s): I63.312 - Cerebral infarction due to thrombosis of left middle cerebral artery Additional A&P Information Hypertension. Allow permissive hypertension currently. BPH. Continue Flomax No need for laboratory tomorrow Attestations Medical Necessity Statement*: Needs continued close monitoring following CVA secondary to recurrence of symptoms. Coding Level of Care Code Acute Volumetric Weigher for [facility] Diagnoses Cerebrovascular accident I63.312 CVA mechanism: thrombosis Laterality of affected vessel: left Precerebral and cerebral artery: middle cerebral artery
--- NOTE | 2021-10-20 19:10 | PC.NURSE ---
Shift report received from Maggie FRANCO. Patient in bed awake/denies pain. Telemetry monitoring present. IV patent/SL. No needs voiced at this time.
[2021-10-20] MEDS: primidone 50 mg Tablet 150 MG PO (20:35)
[2021-10-20] MEDS: atorvastatin 40 mg Tablet 20 MG PO (20:35)
[2021-10-20] MEDS: apixaban 5 mg Tablet PO (20:35)
[2021-10-21 01:10] VITALS: PULSE 88
[2021-10-21 03:56] VITALS: BP 165/78; PULSE 79; RESP 19; TEMP 36.9; O2SAT 93
[2021-10-21 05:05] VITALS: PULSE 79
[2021-10-21 07:35] VITALS: BP 176/98; PULSE 73; RESP 16; TEMP 36.8; O2SAT 93
[2021-10-21] MEDS: FUROsemide 20 mg Tablet PO (07:49)
[2021-10-21] MEDS: apixaban 5 mg Tablet PO (07:49)
[2021-10-21] MEDS: aspirin 81 mg EC Tablet PO (07:49)
[2021-10-21] MEDS: tamsulosin 0.4 mg Capsule PO (07:49)
[2021-10-21 08:34] VITALS: BP 176/98; PULSE 73; RESP 16; TEMP 36.8
--- NOTE | 2021-10-21 09:16 | P.DS_ITS ---
Discharge Providers Date of Admission: 10/19/21 07:00 Date of Discharge: October 21, 2021 Attending Provider at Admission: Romina Núñez MD Attending Provider at Discharge: Lorne Gentile MD Primary Care Provider: Kenny Adams MD Diagnoses at Discharge Discharge Diagnosis (1) Cerebrovascular accident: Status: Acute Qualifiers: CVA mechanism: thrombosis Laterality of affected vessel: left Precerebral and cerebral artery: middle cerebral artery Qualified Code(s): I63.312 - Cerebral infarction due to thrombosis of left middle cerebral artery Reason for Visit Reason for Visit: stroke Hospital Course Hospital Course Olegario is a 71-year-old white male who presented to the hospital with stroke symptoms including aphasia and right upper extremity paresis. The symptoms seem to resolve, then come back in the emergency department. Neurology evaluated him in the emergency department and he was promptly given TPA with resolution of symptoms. After getting TPA Plavix and aspirin was to be initiated after 24 hours. Prior to this another very short duration event occurred. No loss of consciousness. CTA previously demonstrated no flow-limiting stenosis. Echocardiogram was back and demonstrated no obvious thrombus although quality was poor. Considering no obvious flow-limiting stenosis or significant plaque I have visited with neurology and we elected to place him on aspirin and Eliquis. He will have an event monitor on discharge. He will follow-up with neurology in 2 weeks. He will follow-up with his primary care provider in 4 to 7 days. Lisinopril hydrochlorothiazide was discontinued and lower dose lisinopril initiated for his hypertension. Risks and benefits of Eliquis were discussed and he is to return for any bleeding. He is to discuss with his primary care provider regarding sleep study for likely sleep apnea. He is to return for any symptoms. He will also get an EEG as an outpatient. Physical Exam Narrative: EXAM NARRATIVE: General exam no distress Neck is supple Cardiovascular regular rate and rhythm without murmur Lungs clear Abdomen soft obese nontender Extremities no cyanosis clubbing or edema Neuro no obvious focal deficits. Discharge Data Data Completed and Pending: Completed Studies During Hospitalization Category Date Time Status CT angio headneck * 49014/48871 Urge nt Cat Scan 10/18/21 19:[address] head wo con* 7 0450 Routine Cat Scan 10/19/21 16:[address] head wo con* 7 0450 Stat Cat Scan 12/19/21 19:25 Completed XR chest 1V fausto ble 05850 Stat Exams 10/18/21 19:25 Completed CV. echo wo/w con trast C8929 Routin e Ultrasound 10/19/21 06:00 Completed Vitals: Last Vital Signs Temp 98.3 F 10/21/21 08:34 Pulse 73 10/21/21 08:34 Resp 16 10/21/21 08:34 BP 176/98 10/21/21 08:34 Pulse Ox 93 10/21/21 07:35 Discharge Plan Discharge Patient Disposition: Home Condition: Stable Prescriptions: New lisinopril 10 mg tablet 10 mg PO DAILY Qty: 30 RF: 0 atorvastatin 40 mg Tablet 20 mg PO BEDTIME Qty: 30 RF: 0 aspirin 81 mg Tablet,Delayed Release (Dr/Ec) 81 mg PO DAILY Qty: 30 RF: 0 Eliquis 5 mg Tablet 5 mg PO BID@0900,2100 Qty: 60 RF: 0 Continued furosemide 20 mg tablet 20 mg PO DAILY Qty: 30 RF: 5 tamsulosin 0.4 mg capsule 0.4 mg PO DAILY 90 Days Qty: 90 RF: 3 niacin 500 mg tablet 500 mg PO DAILY Qty: 30 RF: 5 primidone 50 mg tablet 100 mg PO BID RF: 0 Discontinued lisinopril-hydrochlorothiazide 20-12.5 mg tablet 1 tab PO DAILY Qty: 30 RF: 5 Discharge Orders: Discharge Order (Routine); Ordered 10/21/21 Ordered By: Lorne Gentile Other Ambulatory Orders: EEG electroencephalogram (Routine) Timeframe: 2 Weeks Facility: [facility] - Location: Neurology Ordered By: Lorne Gentile [place] cardiac event monitor (Routine) Timeframe: 1 Day Facility: [facility] - Location: Cardiac Diagnostic Laboratory Ordered By: Lorne Gentile Referrals: Collette Rivera MD [Physician] - 2 weeks Kenny Adams MD [Primary Care Provider] - 4-7 days (Consideration of referral for sleep study on follow-up.) Discharge Diet: Cardiac Discharge Activity: Increase activity as tolerated Patient Instructions: Opioid Safety Activity Restrictions/Additional Instructions: Take all medicine as prescribed. Your lisinopril and hydrochlorothiazide doses held currently. Lisinopril 10 mg a day was initiated Follow-up with neurology in 2 weeks Event monitor on discharge. Monitor for any bleeding Discharge Attestations Time Spent in Discharge Care*: greater than 30 min Quality Metrics Clinical Quality Measures During this hospital stay, did patient experience: Stroke Contraindication to Antithrombotic: Antithrombotic prescribed Contraindication to Anticoagulation: Anticoagulation prescribed Contraindication to Statin: Statin prescribed Reason stroke education not provided: Stroke education provided to patient Reason rehab assessment not done: Rehab assessment done Coding Level of Care Code Acute Chg FW DC note Diagnoses Cerebrovascular accident I63.312 CVA mechanism: thrombosis Laterality of affected vessel: left Precerebral and cerebral artery: middle cerebral artery
[2021-10-21 09:35] VITALS: BP 176/98; PULSE 73; RESP 16; TEMP 36.8
== END 2021-10-21 10:49 | disposition home or self-care (01) | DRG 62 ==
LOC: ER 21:34 → ER IP 22:04 → MEDSURG 10-19 21:20
PROVIDERS: Admitting Provider Student in an Organized Health Care Education/Training Program; Emergency Provider Emergency Medicine; PCP Family Medicine Adult Medicine; Visit Provider Internal Medicine
DX: I63.312 Cerebral infarction due to thrombosis of left middle cerebral artery (principal); G81.91 Hemiplegia, unspecified affecting right dominant side; Z68.41 Body mass index [BMI] 40.0-44.9, adult; R47.01 Aphasia; R29.810 Facial weakness; R29.702 NIHSS score 2; F06.4 Anxiety disorder due to known physiological condition; N40.0 Benign prostatic hyperplasia without lower urinary tract symptoms; E78.5 Hyperlipidemia, unspecified; I10 Essential (primary) hypertension; E66.01 Morbid (severe) obesity due to excess calories; M17.0 Bilateral primary osteoarthritis of knee; R73.03 Prediabetes; Z87.440 Personal history of urinary (tract) infections; G47.30 Sleep apnea, unspecified
CPT/HCPCS: 36415; 70450; 70496; 70498; 71045; 80053; 80061; 80306; 81003; 83036; 84484; 85025; 85610; 85730; 92523; 92610; 93005; 96374; 97116; 97161; 97166; 99285; 99291; C8929; J2997; J7030; J7040; Q9956; Q9967

== ENCOUNTER → 2021-11-04 10:34 | Outpatient (BNVA) | payer MEDICARE, SELFPAY | PROVIDERS: PCP Family Medicine Adult Medicine; Visit Provider Specialist | DX: R56.9 Unspecified convulsions (principal) | CPT/HCPCS: 95816 ==

== ENCOUNTER → 2021-11-10 09:53 | Outpatient (BNVA) | payer MEDICARE, SELFPAY | PROVIDERS: PCP Family Medicine Adult Medicine; Visit Provider Specialist | DX: Z86.73 Personal history of transient ischemic attack (TIA), and cerebral infarction without residual deficits (principal); Z86.79 Personal history of other diseases of the circulatory system; E66.01 Morbid (severe) obesity due to excess calories; Z68.42 Body mass index [BMI] 45.0-49.9, adult; F17.220 Nicotine dependence, chewing tobacco, uncomplicated | CPT/HCPCS: 99205; G2212 ==

== ENCOUNTER → 2022-02-25 13:21 | Outpatient (BNVA) | payer MEDICARE, SELFPAY | PROVIDERS: PCP Family Medicine Adult Medicine; Visit Provider Urology | DX: N35.919 Unspecified urethral stricture, male, unspecified site (principal) | CPT/HCPCS: 81003 ==

== ENCOUNTER → 2022-03-03 15:02 | Outpatient (BNVA) | payer MEDICARE, SELFPAY | PROVIDERS: PCP Family Medicine Adult Medicine; Visit Provider Specialist | DX: G25.0 Essential tremor (principal); Z86.73 Personal history of transient ischemic attack (TIA), and cerebral infarction without residual deficits; E66.01 Morbid (severe) obesity due to excess calories; Z68.41 Body mass index [BMI] 40.0-44.9, adult | CPT/HCPCS: 99214 ==

== ENCOUNTER 2022-03-08 09:50 | Day surgery (SDC) | payer MEDICARE, SELFPAY ==
[2022-03-05 11:49] VITALS: BMI 44.4
[2022-03-08] VITALS (7 sets, daily range): BP systolic 124–157; BP diastolic 59–84; PULSE 58–62; RESP 16–18; TEMP 36.1–36.6; O2SAT 94–100
--- NOTE | 2022-03-08 | SCC_ITS ---
Procedure done: Cystoscopy, urethral dilation Fluoroscopy with intraoperative interpretation exclusive of radiology, retrograde urethrogram 57.1 seconds of fluoroscopic guidance, for a cumulative dose of 45.43 mGy, was provided to Dr. Mccain by the radiology department. C-arm images of the abdomen were saved for the patient's permanent record. MARY
--- NOTE | 2022-03-08 04:58 | P.HPUD_ITS ---
Surgery/Procedure H&P Update DATE OF PROCEDURE: March 08, 2022 DATE H&P PERFORMED: 02/25/22 H&P UPDATE INFORMATION: I have reviewed H&P completed within last 30 days, I have examined patient prior to procedure, Changes to prior documentation as noted here and H&P is in [facility] on date indicated CHANGES TO PREVIOUS DOCUMENTATION: Dr Rivera felt Eliquis was no longer indicated for halfway use. It was discontinued PLANNED PROCEDURE: Operation Date: 03/08/22 11:10 Proposed Procedures p 63825/N35.919(Not Applicable) - Nicolas Mccain MD s Visual Internal Urethrotomy(Not Applicable) - Nicolas Mccain MD s Urethral Dilation(Not Applicable) - Nicolas Mccain MD
--- NOTE | 2022-03-08 10:00 | SC_ITS ---
WS: [id number] C-arm fluoroscopy for a urologic procedure, 03/08/2022. Clinical Data: Urethral stricture Comparison: None. Findings: Dr. Mccain performed at urologic procedure. There is contrast in the bladder. SC/C-arm FL for Urology Impression: Urologic procedure.
[2022-03-08] MEDS: sodium chloride 0.9% 1,000 ML 30 ML IV (11:10)
[2022-03-08 11:11] LABS: Basophils # 0.1 10^3/uL (0.0-0.1); Basophils % 0.6 %; Eosinophils # 0.3 10^3/uL (0.0-0.8); Eosinophils % 2.8 %; Hematocrit 45.4 % (42.0-52.0); Hemoglobin 14.8 g/dL (11.7-16.6); Lymphocytes % 18.7 %; Mean Corpuscular HGB Conc 32.6 g/dL (30.0-36.0); Mean Platelet Volume 11.1 fL (7.4-10.4); Monocytes # 0.6 10^3/uL (0.2-0.9); Neutrophils # 7.56 10^3/uL (1.8-7.7); Neutrophils % 71.5 %; Nucleated Red Blood Cells % 0 %; Platelet Count 276 10^3/cmm (130-400); Red Blood Count 5.28 10^6/uL (4.1-5.3); Red Cell Distribution Width 13.4 % (12.1-15.1); White Blood Count 10.6 10^3/uL (4.0-10.0)
[2022-03-08 11:29] LABS: Alanine Aminotransferase 9 U/L (0-41); Albumin Level 3.9 g/dL (3.5-5.2); Alkaline Phosphatase 75 IU/L (40-130); Anion Gap 12.8 (5-19); Aspartate Amino Transferase 15 U/L (0-40); Blood Urea Nitrogen 19 mg/dL (8-23); Calcium 9.3 mg/dL (8.5-10.5); Carbon Dioxide 31 mmol/L (22-29); Chloride 104 mmol/L (98-107); Globulin 2.3 g/dL (1.3-4.6); Glucose 107 mg/dL (65-115); Osmolality Calculated 301 mOsm/kg (285-295); Potassium 3.8 mmol/L (3.5-5.1); Sodium 144 mmol/L (136-145); Total Bilirubin 0.4 mg/dL (0.15-1.2); Total Protein 6.2 g/dL (6.6-8.7)
[2022-03-08 11:37] LABS: Glucose Point of Care 105 mg/dL (70-110)
--- NOTE | 2022-03-08 11:39 | ANES.PREANE2 ---
Pre-Anesthetic Assessment Height/Weight: Height 1.78 m Weight 140.614 kg Temp Pulse Resp BP Pulse Ox 97.8 F 62 18 157/84 96 03/08/22 10:25 03/08/22 10:25 03/08/22 10:25 03/08/22 10:25 03/08/22 10:25 Preop Diagnosis: Urethral stricture Operation Date: 03/08/22 12:10 Proposed Procedures p 23486/N35.919(Not Applicable) - Nicolas Mccain MD s Visual Internal Urethrotomy(Not Applicable) - Nicolas Mccain MD s Urethral Dilation(Not Applicable) - Nicolas Mccain MD Familial anesthetic complications: None Was Beta Nacho taken within 24 hours: N/A Was Clonidine taken within 24 hours: N/A Last intake: Intake Last Liquid Date 03/08/22 Last Liquid Time 01:00 Last Solid Date 03/07/22 Last Solid Time 20:00 Social No alcohol and No tobacco Exam alert, oriented x 3, clear to auscultation bilaterally and regular rate & rhythm Airway Submandibular: within normal limits Cervical ROM: within normal limits Mallampati: Class II Dentition: false Pulmonary Chronic Obstructive Pulmonary Disease CV/HEM Atrial Fibrillation and Hypertension Metabolic Diabetes Mellitus, Morbid Obesity and Thyroid Disease Musc/skel Osteoarthritis/DJD Neuropsych Anxiety and Cerebrovascular Accident Anesthetic Plan ASA status: 3 Anesthesia: General Medications/Allergies Home Medications Medication Instructions Recorded Confirmed Last Taken Type niacin 500 mg tablet 500 mg PO DAILY #30 tab 08/28/21 03/08/22 03/07/22 Rx metformin 500 mg tablet 500 mg PO DAILY #30 tab 10/27/21 03/08/22 03/07/22 Rx primidone 50 mg tablet 50 mg PO BID #60 tab 11/10/21 03/08/22 03/07/22 Rx diclofenac sodium 75 mg 75 mg PO BID PRN #180 tab 11/27/21 03/08/22 03/07/22 Rx tablet,delayed release furosemide 40 mg tablet 40 mg PO QAM #30 tab 11/27/21 03/08/22 03/07/22 Rx lisinopril 20 mg tablet 20 mg PO DAILY #90 tab 11/27/21 03/08/22 03/07/22 Rx aspirin 81 mg tablet,delayed See Rx Instructions .ROUTE 12/18/21 03/08/22 03/05/22 Rx release .COMPLEX #30 tab tamsulosin 0.4 mg capsule 0.4 mg PO BID #180 cap 02/12/22 03/08/22 03/08/22 Rx atorvastatin 40 mg tablet 40 mg PO BEDTIME 03/05/22 03/08/22 03/07/22 History Allergies Allergy/AdvReac Type Severity Reaction Status Date / Time No Known Allergies Allergy Verified 02/25/22 13:23 Current Medications Generic Name Dose Route Start Last Admin Trade Name Alicia PRN Reason Stop Dose Admin Sodium Chloride 1,000 mls @ 30 mls/hr 03/08/22 10:00 03/08/22 11:10 Sodium Chloride 0.9% IV 03/09/22 09:59 30 mls/hr .Q24H PETE Administration PFSH Anesthesia Medical History Anxiety about health BPH (benign prostatic hyperplasia) Dyslipidemia (high LDL; low HDL) Hypertension Knee gives out Morbid obesity with BMI of 40.0-44.9, adult New onset type 2 diabetes mellitus Osteoarthritis of both knees Urethral stricture UTI (urinary tract infection) Surgical History Hx of appendectomy Family History Father , AT AGE 82 Brain tumor Mother , AT AGE 63 Bleeding disorder Other CAD (coronary artery disease) Cancer Diabetes Hyperlipidemia Hypertension Lung disease Psychiatric illness Stroke Social History Smoking and tobacco status: never smoked Alcohol intake: never Marital status: Number of children: 3 Number of grandchildren: 4 Current occupational status: 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2) g/dL Cardiac Studies: Echocardiogram 10/19/21 Cardiac Event Monitor 10/27/21
--- NOTE | 2022-03-08 12:21 | P.OP_ITS ---
Operative Report Date of procedure: March 08, 2022 Pre-op diagnosis: Urethral stricture Post-op diagnosis: Urethral stricture Procedure done: Cystoscopy, urethral dilation Fluoroscopy with intraoperative interpretation exclusive of radiology, retrograde urethrogram Pathology: None Surgeon: Adán Estimated blood loss: <10 cc Urine output: Not measured Complications: None Findings: Tight distal urethral stricture Brief History: Mr. Long is a very pleasant 71-year-old white male with a known symptomatic distal urethral stricture that we have been talking about dilating now for at least 2 years. Has a lot of symptoms related to it. It was postponed earlier this year due to an embolic stroke which he has recovered from. He is now off of blood thinners. Procedure: After routine preoperative evaluation examination and obtaining of informed consent he was taken to the operating suite on 03/08/2022 where general anesthesia was administered without difficulty after appropriate timeout was performed, SCDs confirmed to be functioning, preoperative antibiotics administered, beta- florence protocol confirmed. Prepped and draped in usual sterile fashion in dorsolithotomy position paying careful attention to avoiding pressure points. The 17 [place] cystoscope with 30 degree lens was introduced into urethra meatus but could not be advanced more than about 2 cm. At that point the distal urethra was very narrowed. Attempted passing a guidewire was unsuccessful due to second level of stricture disease. A 6 [place] mini ureteroscope was then utilized to pass into the bladder. There were multiple levels of stricture along the urethra. The bladder was distended. There was moderate to severe trabeculation. A guidewire was passed through the scope curling in the bladder. Some contrast was injected through the scope into the bladder for visualization purposes. The urethra was then sequentially dilated from 8 [place] to 20 [place] with Amplatz renal dilator system. The 8 through 12 [place] were over the wire and the 14 through 20 [place] were over the snake. Each passage was under fluoroscopic monitoring which showed normal passage. The bladder was then drained with a 14 [place] coud? tip catheter converted to akutan tip. Catheter was irrigated to confirm function. Urine was minimally bloody. Catheter functioned well. Tolerated procedure well without complications. Awakened in the operating room and returned to the recovery room with catheter placed to dependent drainage. PLANS: 1. Maintain Allen catheter until Tuesday of this week at which point we will plan a voiding trial, cystoscopy to assess for healing, possible increased caliber of the catheter versus self-catheterization training for stricture patency maintenance depending upon the healing status. 2. He has been encouraged to consume a large amount of fluid to keep his urine is clear as possible.
[2022-03-08] MEDS: levofloxacin-dextrose 5 % 500 MG/100 ML PREMIX 100 MG IV (12:38)
[2022-03-08] MEDS: lidocaine 2% Urojet 20 mL TOPICAL (13:01)
[2022-03-08] MEDS: iohexol 300 mg/mL 50 mL Btl (OR ONLY) XX (13:12)
--- NOTE | 2022-03-08 13:39 | ANE.PACU2 ---
Inpatient post-anesthesia follow up: Airway intact: Yes Vital signs: Temperature 97.1 F Pulse Rate 58 Respiratory Rate 16 Blood Pressure 135/69 Pulse Oximetry 99 Oxygen Delivery Me thod Room Air Oxygen Flow Rate 6 Fraction of Inspir ed Oxygen Hydration adequate: Yes Nausea and vomiting: No Pain level: 2 Mental status: Baseline
== END 2022-03-08 14:45 | disposition home or self-care (01) ==
PROVIDERS: PCP Family Medicine Adult Medicine; Visit Provider Urology
PROC: 0TJB8ZZ Inspection of Bladder, Via Natural or Artificial Opening Endoscopic (ICD-10-PCS; CPT 52000; principal; 2022-03-08 12:00)
PROC: (CPT 52281; 2022-03-08 12:00)
DX: N35.919 Unspecified urethral stricture, male, unspecified site (principal); J44.9 Chronic obstructive pulmonary disease, unspecified; I48.91 Unspecified atrial fibrillation; I10 Essential (primary) hypertension; E11.9 Type 2 diabetes mellitus without complications; E66.01 Morbid (severe) obesity due to excess calories; Z68.41 Body mass index [BMI] 40.0-44.9, adult; M19.90 Unspecified osteoarthritis, unspecified site; Z86.73 Personal history of transient ischemic attack (TIA), and cerebral infarction without residual deficits; Z79.82 Long term (current) use of aspirin; Z79.84 Long term (current) use of oral hypoglycemic drugs; N40.0 Benign prostatic hyperplasia without lower urinary tract symptoms
CPT/HCPCS: 52281; 36415; 36416; 76000; 80053; 82962; 85025; J1100; J1956; J2405; J2704; J3010; J7030

== ENCOUNTER → 2022-03-12 09:55 | Outpatient (BNVA) | payer MEDICARE, SELFPAY | PROVIDERS: PCP Family Medicine Adult Medicine; Visit Provider Urology | DX: N35.919 Unspecified urethral stricture, male, unspecified site (principal) | CPT/HCPCS: 99213 ==

== ENCOUNTER 2022-03-13 05:46 | Inpatient (IN) | payer MEDICARE, SELFPAY ==
[2022-03-13] VITALS (40 sets, daily range): BP systolic 106–169; BP diastolic 59–98; PULSE 62–81; RESP 14–24; TEMP 36.3–37.1; O2SAT 80–98; BMI 44.4
--- NOTE | 2022-03-13 05:56 | CTR_ITS ---
PROCEDURE INFORMATION: Exam: CT Head Without Contrast Exam date and time: 03/13/2022 6:06 AM Age: 71 years old Clinical indication: Weakness, extremity; Right; Patient HX: Patient states this morning could not move RT leg and C/O RT arm tingling. Last known well time at 0300. ; Additional info: R leg weakness TECHNIQUE: Imaging protocol: Computed tomography of the head without contrast. Radiation optimization: All CT scans at this facility use at least one of these dose optimization techniques: automated exposure control; mA and/or kV adjustment per patient size (includes targeted exams where dose is matched to clinical indication); or iterative reconstruction. Other technique: STROKE PROTOCOL was implemented. COMPARISON: CT head wo con* [id number] 10/19/2021 4:19 PM RADIATION DOSE METRICS: Total DLP (mGy-cm): 1046.29 FINDINGS: Brain: There is no evidence of intracranial hemorrhage. There are moderate confluent periventricular hypodensities consistent with chronic microischemic changes of white matter. No mass effect or midline shift. No evidence of territorial edema. Cerebral ventricles: There is moderate volume loss and commensurate ventricular dilatation, consistent with the patient's age. . Paranasal sinuses: There is mucoperiosteal thickening of the left frontal sinus. No air-fluid levels. Mastoid air cells: The visualized mastoid air cells are well aerated. Bones/joints: No acute fracture. Soft tissues: Unremarkable. CT/CT head wo con* [id number] IMPRESSION: 1. No acute intracranial findings. No significant interval change. 2. Moderate cerebral small-vessel disease. 3. Moderate cerebral volume loss. ASSESSMENT: ASPECTS (Josie Stroke Program Early CT Score) is 10.
--- NOTE | 2022-03-13 06:09 | ECG_ITS ---
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 Measurements Intervals [place] Rate: 63 P: 62 ND: 169 QRS: -1 QRSD: 107 T: 46 QT: 391 QTc: 401 Interpretive Statements SINUS RHYTHM POSSIBLE RIGHT VENTRICULAR CONDUCTION DELAY [RSR (QR) IN V1/V2] Compared to ECG 10/19/2021 01:27:32 No significant changes Electronically Signed On 03-13-2022 12:40:00 CDT by Kacey Mclaughlin M.D. [email or web address]
[2022-03-13 06:13] LABS: Glucose Point of Care 123 mg/dL (70-110)
--- NOTE | 2022-03-13 06:21 | W.ED.EXTPRO ---
HPI - Extremity Problem General: Chief complaint: Extremity Problem,Nontraumatic Stated complaint: UNABLE TO MOVE RIGHT LEG Time Seen by Provider: 03/13/22 05:52 PFSH ED PFSH: Medical History Anxiety about health BPH (benign prostatic hyperplasia) Dyslipidemia (high LDL; low HDL) Hypertension Knee gives out Morbid obesity with BMI of 40.0-44.9, adult New onset type 2 diabetes mellitus Osteoarthritis of both knees Urethral stricture UTI (urinary tract infection) Surgical History Hx of appendectomy Family History Father , AT AGE 82 Brain tumor Mother , AT AGE 63 Bleeding disorder Other CAD (coronary artery disease) Cancer Diabetes Hyperlipidemia Hypertension Lung disease Psychiatric illness Stroke Social History Smoking and tobacco status: current every day smoker smokeless tobacco Alcohol intake: never Marital status: Number of children: 3 Number of grandchildren: 4 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 occupational status: 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, History of 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 travel: No Course Vital Signs: Vital signs: Vital Signs Temperature 97.4 F L 03/13/22 05:48 Pulse Rate 73 03/13/22 05:48 Respiratory Rate 20 H 03/13/22 05:48 Blood Pressure 158/96 03/13/22 05:48 Pulse Oximetry 98 03/13/22 05:48 MDM - Extremity (Nontraumatic) Lab Data Laboratory Results POC Glucose 123 mg/dL (70-110) H 03/13/22 06:09 Discharge Plan Discharge Condition: Stable Prescriptions: No Action niacin 500 mg tablet 500 mg PO DAILY Qty: 30 5RF diclofenac sodium 75 mg tablet,delayed release (DR/EC) 75 mg PO BID PRN (Reason: pain) Qty: 180 1RF lisinopril 20 mg tablet 20 mg PO DAILY Qty: 90 2RF furosemide 40 mg tablet 40 mg PO QAM Qty: 30 5RF metformin 500 mg tablet 500 mg PO DAILY Qty: 30 5RF primidone 50 mg tablet 50 mg PO BID Qty: 60 3RF aspirin 325 mg tablet 325 mg PO .EVERY OTHER DAY 0RF aspirin 81 mg tablet,delayed release (DR/EC) See Rx Instructions .ROUTE .COMPLEX Qty: 30 2RF Dose Instruction: Take 1 tablet by mouth once daily Rx Instructions: Take 1 tablet by mouth once daily tamsulosin 0.4 mg capsule 0.4 mg PO BID Qty: 180 3RF atorvastatin 40 mg tablet 40 mg PO BEDTIME 0RF Rx Instructions: TAKE 1 TABLET BY MOUTH AT BEDTIME hydrocodone-acetaminophen 5-325 mg tablet 1 tab PO Q8H PRN (Reason: pain) Qty: 9 0RF Referrals: Kenny Adams MD [Primary Care Provider] - Coding Level of Care Code ED [employer]ger for sang Finney
[2022-03-13 06:24] LABS: Basophils # 0.1 10^3/uL (0.0-0.1); Basophils % 0.5 %; Eosinophils # 0.3 10^3/uL (0.0-0.8); Eosinophils % 2.6 %; Hematocrit 45.4 % (42.0-52.0); Hemoglobin 14.7 g/dL (11.7-16.6); Lymphocytes # 1.7 10^3/uL (0.8-4.8); Lymphocytes % 13.3 %; Mean Corpuscular HGB Conc 32.4 g/dL (30.0-36.0); Mean Corpuscular Hemoglobin 28.5 pg (28.0-34.0); Mean Platelet Volume 11.2 fL (7.4-10.4); Monocytes % 7.7 %; Neutrophils % 75.4 %; Nucleated Red Blood Cells % 0 %; Platelet Count 248 10^3/cmm (130-400); Red Blood Count 5.16 10^6/uL (4.1-5.3); Red Cell Distribution Width 13.8 % (12.1-15.1)
--- NOTE | 2022-03-13 06:26 | ED_ITS ---
HPI - Neuro Symptoms/Deficit General: Chief Complaint: Extremity Problem,Nontraumatic Stated Complaint: UNABLE TO MOVE RIGHT LEG Time Seen by Provider: 03/13/22 05:52 Source: patient Limitations: no limitations History of Present Illness: 71-year-old male presents to the emergency room with complaints of right leg weakness that began at 339 this morning. 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 Rivera. I reviewed his notes extensively they recently stopped the Eliquis 9 days ago because they had initially thought he had an embolic stroke from A. fib as mentioned he had A. 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 Rivera did an extensive work-up including heart monitoring for an extended period of time but never documented any atrial fibrillation ultimately decided to stop the Eliquis. Has been doing well since stopping on the fifth and then today this morning at 339 he was awake and began to have right leg weakness. He has ataxia in the right leg he has minimal effort against gravity but he has no sensation abnormalities. He denies any b ack pain. Straight leg raising was negative. He has no other symptoms as NIH score initially and presentation is 3. He was hesitant to consider tPA when discussed with him. After that the Eliquis was stopped he remained on baby aspirin and high-dose atorvastatin. Incidentally the patient recently had a catheter placed by Dr. Mccain for urinary retention. Onset (ago): hour(s) Time: 05:46 Last Observed Normal: 03:39 Location: left leg History of same: Yes Severity: moderate Quality: weak Relieving factors: none Exacerbating factors: none Context: sudden onset On Anticoagulants: No Associated symptoms: Deny chest pain, cough, diaphoresis, fevers/chills, headache(s), anorexia, malaise, nausea, short of breath, syncope, tingling, vertigo, vomiting or weakness Treatments Prior to Arrival: Aspirin Review of Systems Const: Denies: fever(s), chills, malaise or diaphoresis ENMT: Denies: throat pain, ear or mastoid pain, nasal discharge or nasal congestion Card: Denies: chest pain or syncope Resp: Denies: dyspnea, productive cough or non-productive cough GI: Denies: abdominal pain, nausea or vomiting : Reports: difficulty urinating; Denies: flank pain, dysuria, urinary frequency or urinary urgency Skin/Breast: Denies: rash or pruritus Neuro: Denies: headache(s) or vertigo PFSH ED PFSH: Medical History Anxiety about health BPH (benign prostatic hyperplasia) Dyslipidemia (high LDL; low HDL) Hypertension Knee gives out Morbid obesity with BMI of 40.0-44.9, adult New onset type 2 diabetes mellitus Osteoarthritis of both knees Urethral stricture UTI (urinary tract infection) Surgical History Hx of appendectomy Family History Father , AT AGE 82 Brain tumor Mother , AT AGE 63 Bleeding disorder Other CAD (coronary artery disease) Cancer Diabetes Hyperlipidemia Hypertension Lung disease Psychiatric illness Stroke Social History Smoking and tobacco status: current every day smoker smokeless tobacco Alcohol intake: never Marital status: Number of children: 3 Number of grandchildren: 4 Current occupational status: 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, History of recent travel: No NIH stroke score NIHSS: Level Of Consciousness - 1a: 0 Level Of Consciousness Questions - 1b: Both Correct Level Of Consciousness Commands - 1c: Both Correct Best Gaze - 2: Normal Visual Posey - 3: No Visual Loss Facial Palsy - 4: Normal Motor Arm Right - 5: No Drift Motor Arm Left - 5: No Drift Motor Leg Right - 6: Effort Against [place] Motor Leg Left - 6: No Drift Limb Ataxia - 7: Present In One Limb (R leg- pt can drag leg on bed but not preform any tasks) Sensory - 8: Normal Best Language - 9: No Aphasia Dysarthia - 10: Normal Extinction And Inattention - 11: 0 Score: Total Score: 3 Physical Exam Const: COMMON NORMALS: no acute distress GENERAL APPEARANCE: cooperative and comfortable ORIENTATION/CONSCIOUSNESS: Yes awake, Yes oriented to person, Yes oriented to place and Yes oriented to time HENMT: COMMON NORMALS: normocephalic, atraumatic, hearing grossly normal bilaterally, external ears normal, EAC's normal, TM's normal bilaterally, Normal nasal mucous membranes and turbinates present, moist oral mucous membranes and oropharynx normal HEAD & SCALP: normocephalic and atraumatic NOSE: Normal nasal mucous membranes and turbinates present EXTERNAL EAR: Yes external ears normal EXTERNAL AUDITORY CANAL: EAC's normal TYMPANIC MEMBRANE: TM's normal bilaterally Eye: COMMON NORMALS: Equal, round and reactive pupils present, EOMs intact bilaterally, conjunctivae normal and no scleral icterus CONJUNCTIVA: Yes conjunctivae normal PUPIL: Yes Equal, round and reactive pupils present Neck/C-Spine: COMMON NORMALS: full ROM, no lymphadenopathy, supple and no JVD Resp: COMMON NORMALS: normal respiratory effort, No retractions, No use of accessory muscles and clear to auscultation bilaterally AUSCULTATION: clear to auscultation bilaterally Cardio: COMMON NORMALS: no JVD, regular rate, regular rhythm and No murmurs present (Cardio) RATE: regular rate RHYTHM: regular rhythm GI: COMMON NORMALS: Soft to palpation and No hepatosplenomegaly present AUSCULTATION: Yes normoactive bowel sounds PALPATION: Yes Soft to palpation, No Tenderness to palpation present (GI), No Guarding due to palpation present (GI) and Yes No hepatosplenomegaly present Extremity: COMMON NORMALS: normal to inspection, capillary refill normal, no clubbing, cyanosis or edema, no calf tenderness and no pedal edema Neuro: SENSORIUM/ORIENTATION: Yes oriented to person, Yes oriented to place and Yes oriented to time Skin: COMMON NORMALS: no rashes or lesions noted GENERAL SKIN EXAM: no rashes or lesions noted Course Vital Signs: Vital signs: Vital Signs Temperature 98.4 F 03/13/22 10:02 Pulse Rate 72 03/13/22 10:02 Respiratory Rate 14 03/13/22 10:02 Blood Pressure 137/68 03/13/22 10:02 Pulse Oximetry 94 03/13/22 09:55 MDM - Neuro Symptoms/Deficit Medical Decision Making There are some delay after the patient presented to and we initiated tPA because it was not clear if he was a candidate. I had him scored is a 3 I contacted [facility] they felt he was more appropriately escorted to. Because of the concern and because of his other underlying issues his previous stroke they consult with the patient via TeleMed. After talking to the patient via telemed and evaluating him they felt he was a candidate for tPA consented him I confirmed this with him with the family at the bedside and he wishes to proceed. Patient was given tPA shortly after that he had a a transient episode of hypotension with diaphoresis this resolved with 500 mL normal saline IV. Discussed with hospitalist orders written admit forCVA with treatment by tPA. Dr. Laguerre to admit orders written. Medical Records I reviewed the patient's medical records. Lab Data I reviewed the patient's lab results. : 03/13/22 06:20 03/13/22 06:[address] 03/13/22 08:26 IMPRESSION: 1. No acute intracranial hemorrhage identified. 2. No large territorial infarcts identified. 3. Mild chronic microvascular ischemic disease. Laboratory Results WBC 13.0 10^3/uL (4.0-10.0) H 03/13/22 06:20 RBC 5.16 10^6/uL (4.1-5.3) 03/13/22 06:20 Hgb 14.7 g/dL (11.7-16.6) 03/13/22 06:20 Hct 45.4 % (42.0-52.0) 03/13/22 06:20 MCV 88.0 fl (80-94) 03/13/22 06:20 MCH 28.5 pg (28.0-34.0) 03/13/22 06:20 MCHC 32.4 g/dL (30.0-36.0) 03/13/22 06:20 RDW 13.8 % (12.1-15.1) 03/13/22 06:20 Plt Count 248 10^3/cmm (130-400) 03/13/22 06:20 MPV 11.2 fL (7.4-10.4) H 03/13/22 06:20 Neut % (Auto) 75.4 % 03/13/22 06:20 Lymph % (Auto) 13.3 % 03/13/22 06:20 Andrews % (Auto) 7.7 % 03/13/22 06:20 Eos % (Auto) 2.6 % 03/13/22 06:20 Baso % (Auto) 0.5 % 03/13/22 06:20 Neut # (Auto) 9.80 10^3/uL (1.8-7.7) H 03/13/22 06:20 Lymph # (Auto) 1.7 10^3/uL (0.8-4.8) 03/13/22 06:20 Andrews # (Auto) 1.0 10^3/uL (0.2-0.9) H 03/13/22 06:20 Eos # (Auto) 0.3 10^3/uL (0.0-0.8) 03/13/22 06:20 Baso # (Auto) 0.1 10^3/uL (0.0-0.1) 03/13/22 06:20 Nucleated RBC % (auto) 0 % 03/13/22 06:20 Nucleated RBCs # 0.0 /100WBC 03/13/22 06:20 PT 14.20 SECONDS (12.1-14.9) 03/13/22 06:20 INR 1.07 (0.8-1.2) 03/13/22 06:20 APTT 29.6 SECONDS (23.9-36.7) 03/13/22 06:20 Sodium 138 mmol/L (136-145) 03/13/22 06:20 Potassium 3.6 mmol/L (3.5-5.1) 03/13/22 06:20 Chloride 97 mmol/L (98-107) L 03/13/22 06:20 Carbon Dioxide 33 mmol/L (22-29) H 03/13/22 06:20 Anion Gap 11.6 (5-19) 03/13/22 06:20 BUN 20 mg/dL (8-23) 03/13/22 06:20 Creatinine 1.0 mg/dL (0.7-1.2) 03/13/22 06:20 GFR Calculation Not Reportable 03/13/22 06:20 Glucose 136 mg/dL (65-115) H 03/13/22 06:20 POC Glucose 123 mg/dL (70-110) H 03/13/22 06:09 Calculated Osmolality 291 mOsm/kg (285-295) 03/13/22 06:20 Calcium 9.6 mg/dL (8.5-10.5) 03/13/22 06:20 Total Bilirubin 0.8 mg/dL (0.15-1.2) 03/13/22 06:20 AST 9 U/L (0-40) 03/13/22 06:20 ALT 8 U/L (0-41) 03/13/22 06:20 Alkaline Phosphatase 77 IU/L (40-130) 03/13/22 06:20 Total Protein 6.6 g/dL (6.6-8.7) 03/13/22 06:20 Albumin 3.6 g/dL (3.5-5.2) 03/13/22 06:20 Globulin 3.0 g/dL (1.3-4.6) 03/13/22 06:20 Urine Color Yellow (Yellow) 03/13/22 06:20 Urine Appearance Clear (CLEAR) 03/13/22 06:20 Urine pH 5 (5-7) 03/13/22 06:20 Ur Specific [place] 1.020 (1.005-1.030) 03/13/22 06:20 Urine Protein Neg (Negative) 03/13/22 06:20 Urine Glucose (UA) Norm (Normal) 03/13/22 06:20 Urine Ketones Negative (Negative) 03/13/22 06:20 Urine Blood 3+ (Negative) H 03/13/22 06:20 Urine Nitrate Negative (Negative) 03/13/22 06:20 Urine Bilirubin Neg (Negative) 03/13/22 06:20 Urine Urobilinogen 4 mg/dL (Negative) H 03/13/22 06:20 Ur Leukocyte Esterase Trace (Negative) H 03/13/22 06:20 Urine RBC 10-15 /hpf (0-2) H 03/13/22 06:20 Urine WBC 0-4 /hpf (0-5) H 03/13/22 06:20 Ur Squamous Epith Cells None /hpf (0-5) 03/13/22 06:20 Amorphous Sediment Not Reportable 03/13/22 06:20 Urine Bacteria Trace /hpf (NONE) 03/13/22 06:20 Urine Opiates Screen Negative ng/mL (Negative) 03/13/22 06:20 Ur Barbiturates Screen Positive ng/mL (Negative) H 03/13/22 06:20 Ur Phencyclidine Scrn Negative ng/mL (Negative) 03/13/22 06:20 Ur Amphetamines Screen Negative ng/mL (Negative) 03/13/22 06:20 U Benzodiazepines Scrn Negative ng/mL (Negative) 03/13/22 06:20 Urine Cocaine Screen Negative ng/mL (Negative) 03/13/22 06:20 U Marijuana (THC) Screen Negative ng/mL (Negative) 03/13/22 06:20 Discharge Plan Discharge Patient Disposition: Admitted As Inpatient Admit Provider: Eliel Laguerre Clinical Impression: Left acute arterial ischemic stroke, MCA (middle cerebral artery), Hypertension Condition: Stable Coding Level of Care Code ED Lab Aide for Macielg Fwd Exam Comprehensive
[2022-03-13 06:35] LABS: INR 1.07 (0.8-1.2)
[2022-03-13 06:36] LABS: Partial Thromboplastin Time 29.6 SECONDS (23.9-36.7)
[2022-03-13 06:43] LABS: Alanine Aminotransferase 8 U/L (0-41); Albumin Level 3.6 g/dL (3.5-5.2); Alkaline Phosphatase 77 IU/L (40-130); Amphetamines Screen Urine Negative (Negative); Anion Gap 11.6 (5-19); Aspartate Amino Transferase 9 U/L (0-40); Barbiturates Screen Urine Positive (Negative); Benzodiazepines Screen Urine Negative (Negative); Blood Urea Nitrogen 20 mg/dL (8-23); Calcium 9.6 mg/dL (8.5-10.5); Carbon Dioxide 33 mmol/L (22-29); Chloride 97 mmol/L (98-107); Cocaine Screen Urine Negative (Negative); Glucose 136 mg/dL (65-115); Opiate Screen Urine Negative (Negative); Osmolality Calculated 291 mOsm/kg (285-295); PCP Screen Urine Negative (Negative); Potassium 3.6 mmol/L (3.5-5.1); Sodium 138 mmol/L (136-145); THC Screen Urine Negative (Negative); Total Bilirubin 0.8 mg/dL (0.15-1.2); Total Protein 6.6 g/dL (6.6-8.7)
[2022-03-13 07:13] LABS: Bilirubin Urine Neg (Negative); Blood Urine 3+ (Negative); Glucose Urine UA Norm (Normal); Ketones Urine Negative (Negative); Leukocyte Esterase Urine Trace (Negative); Nitrate Urine Negative (Negative); Protein Urine Neg (Negative); Urine Appearance Clear (CLEAR); Urine Color Yellow (Yellow); Urobilinogen Urine 4 mg/dL (Negative); pH Urine 5 (5-7)
[2022-03-13 07:14] LABS: Add Urine Microscopic? YES
[2022-03-13 07:15] LABS: WBC Urine 0-4 /hpf (0-5)
[2022-03-13 07:16] LABS: Add Urine Culture? Yes; Bacteria Urine TRACE /hpf
--- NOTE | 2022-03-13 07:40 | PM.HP ---
Providers/Chief Complaint Admitting Physician: Eliel Laguerre Primary Care Provider: Kenny Adams MD Chief Complaint: UNABLE TO MOVE RIGHT LEG History of Present Illness Olegario Bai is a 71 year old male with a past medical history significant for anxiety, benign prostatic hypertrophy, dyslipidemia, hypertension, obesity, type 2 diabetes mellitus, tremor and stroke who presents to the emergency department with stroke-like symptoms. Patient reports he was in his usual state of health, until this morning when he awoke at 3:39 AM. At that time, he noticed right leg weakness which prompted him to go to the emergency department. He also endorses a transient episode of right leg and right upper extremity weakness that occurred yesterday. Patient denies back pain, chest pain, fevers, chills, headaches, nausea, emesis, abdominal pain, loss of consciousness, or vertigo. Patient does have a history of a prior stroke. He was admitted in September 2021 after presenting with right arm motor aphasia. At that time, he received tPA as well with resolution of symptoms. At discharge, he was placed on aspirin and Eliquis. There is reportedly no atrial fibrillation observed during that admission and he was discharged on an event monitor. He has been following with Dr. Rivera, last seen 03/03/22. Per last note, there was concern for possible atrial fibrillation per the daughter reportedly told to her by the EMS crew that transported him, however per Dr. Rivera's note, Air-Evac telemetry strips were reviewed and negative for any evidence of atrial fibrillation. His event monitor as outpatient was negative for atrial fibrillation. Therefore his apixaban was discontinued around 03/04 as there was no definitive evidence of atrial fibrillation, and he had an upcoming urological procedure which was performed on 03/08. In the emergency department patient was found to have an NIH scale of 3 with right-sided weakness. Teleneurology was consulted. tPA was discussed with the patient for which she was agreeable. tPA was administered. ED course was further complicated by diaphoresis and marked hypotension. He received IV fluid bolus with improvement in blood pressure Repeat CT head plain was negative for acute intracranial bleeding. Review of Systems Narrative: A complete review of systems was obtained and is negative except as stated in HPI. Medications/Allergies Home Medications Medication Instructions Recorded Confirmed Last Taken Type niacin 500 mg tablet 500 mg PO DAILY #30 tab 08/28/21 03/13/2203/07/22 Rx metformin 500 mg tablet 500 mg PO DAILY #30 tab 10/27/21 03/13/22 03/07/22 Rx primidone 50 mg tablet 50 mg PO BID #60 tab 11/10/21 03/13/22 03/07/22 Rx diclofenac sodium 75 mg 75 mg PO BID PRN #180 tab 11/27/21 03/13/22 03/07/22 Rx tablet,delayed release furosemide 40 mg tablet 40 mg PO QAM #30 tab 11/27/21 03/13/22 03/07/22 Rx lisinopril 20 mg tablet 20 mg PO DAILY #90 tab 11/27/21 03/13/22 03/07/22 Rx tamsulosin 0.4 mg capsule 0.4 mg PO BID #180 cap 02/12/22 03/13/22 03/08/22 Rx atorvastatin 40 mg tablet 40 mg PO BEDTIME 03/05/22 03/13/22 03/07/22 History hydrocodone 5 mg-acetaminophen 325 1 tab PO Q8H PRN #9 tab 03/08/22 03/13/22 Unknown Rx mg tablet aspirin 325 mg tablet 325 mg PO EVERY OTHER DAY tab 03/12/22 03/13/22 Unknown History Allergies Allergy/AdvReac Type Severity Reaction Status Date / Time No Known Allergies Allergy Verified 03/12/22 10:29 PFSH Acute PFSH: Medical History Anxiety about health BPH (benign prostatic hyperplasia) Dyslipidemia (high LDL; low HDL) Hypertension Knee gives out Morbid obesity with BMI of 40.0-44.9, adult New onset type 2 diabetes mellitus Osteoarthritis of both knees Urethral stricture UTI (urinary tract infection) Surgical History Hx of appendectomy Family History Father , AT AGE 82 Brain tumor Mother , AT AGE 63 Bleeding disorder Other CAD (coronary artery disease) Cancer Diabetes Hyperlipidemia Hypertension Lung disease Psychiatric illness Stroke Social History Smoking and tobacco status: current every day smoker smokeless tobacco Alcohol intake: never Marital status: Number of children: 3 Number of grandchildren: 4 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 Head: Normocephalic. Atraumatic. EOM intact. No facial droop. Neck: No JVD. Cardiovascular: RRR. No gallops. No murmurs. No peripheral edema. Lungs: Clear to auscultation, no use of accessory muscles, no crackles or wheezes. Skin: No jaundice. No rashes. Abdomen: Normal bowel sounds, abdomen soft and nontender. Genito Urinary: Genital exam not performed since complaints not related. Rectal: Rectal exam not performed since no symptoms indicated blood loss. Extremeties: No cyanosis or clubbing. Musculoskeletal:No swollen or erythematous joints. Neurological: No myoclonus. Cranial nerves II through XII grossly intact. Left-sided strength 5 out of 5. Right lower extremity strength 3 out of 5. Right upper extremity 4+ out of 5. Sensation grossly intact. Data : 03/13/22 06:20 03/13/22 06:20 A&P Assessment and plan (1) Cerebrovascular accident: Patient presents with symptoms consistent with CVA versus TIA. Status post tPA in the ED Admitting to ICU for close monitoring Closely monitor blood pressure which must be maintained below 180/105 mmHg No additional antiplatelets or anticoagulants for 24 hours post tPA Repeat CT head plain 24 hours Anticipate aspirin and Plavix after [address]/PT/OT evaluation Transthoracic echocardiogram ordered Continue statin, increased dose to high intensity atorvastatin 40 mg daily Head MRI ordered Continuous telemetry monitoring Status: Acute Qualifiers: CVA mechanism: thrombosis Laterality of affected vessel: left Precerebral and cerebral artery: middle cerebral artery Qualified Code(s): I63.312 - Cerebral infarction due to thrombosis of left middle cerebral artery (2) Hypertension: History of hypertension on antihypertensives. Episode of diaphoresis and hypotension in the ED. Suspect possible vasovagal event. Repeat head CT was negative for intracranial hemorrhage Will monitor blood pressure closely, must maintain blood pressure less than 180/105 mmHg We will plan on continuing his home lisinopril pending blood pressure Status: Acute (3) Urethral stricture: Status post recent cystoscopy with urethral dilation on 03/08 Continue Allen catheter Follow-up urine culture Status: Acute (4) BPH (benign prostatic hyperplasia): Continue Flomax Status: Acute (5) Morbid obesity with BMI of 40.0-44.9, adult: Patient would eventually benefit from weight loss Status: Acute (6) Dyslipidemia (high LDL; low HDL): Continue statin Lipid panel in the a.m. for restratification Status: Acute (7) New onset type 2 diabetes mellitus: Hold home metformin Sliding scale insulin correction A1c with a.m. labs for restratification Status: Acute (8) Essential tremor: Continue home primidone Status: Acute Plan DVT prophylaxis: SCD. No pharmacological prophylaxis in first 24 hours due to tPA administration Attestations Medical Necessity Statement*: Patient presents with acute stroke requiring tPA and close monitoring ICU with expected hospitalization to cross 2 midnights. Coding Level of Care Code Acute Test Desk Trouble Locator for g Fwd Diagnoses Hypertension I10 Morbid obesity with BMI of 40.0-44.9, adult E66.01; Z68.41 BPH (benign prostatic hyperplasia) N40.0 Dyslipidemia (high LDL; low HDL) E78.5 Urethral stricture N35.919 Cerebrovascular accident I63.312 CVA mechanism: thrombosis Laterality of affected vessel: left Precerebral and cerebral artery: middle cerebral artery New onset type 2 diabetes mellitus E11.9 Essential tremor G25.0
--- NOTE | 2022-03-13 07:57 | PC.NURSE ---
0715- Assumed care of patient, Telemed eval with Neurology in progress. 07 Interview completed and Neurologist calling physician to recommend TPA. 0733 TPA initiated, see MAR. Son at bedside. Patient is A/A/O x 4. Only residual symptom is right leg numbness/tingling and weakness. 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
--- NOTE | 2022-03-13 08:26 | CTR_ITS ---
PROCEDURE INFORMATION: Exam: CT Head Without Contrast Exam date and time: 03/13/2022 8:37 AM Age: 71 years old Clinical indication: Patient HX: States this morning unable to move RT lower extremity. Also C/O tingling to RT arm. Decompensation after tpa; Additional info: CVA TECHNIQUE: Imaging protocol: Computed tomography of the head without contrast. Radiation optimization: All CT scans at this facility use at least one of these dose optimization techniques: automated exposure control; mA and/or kV adjustment per patient size (includes targeted exams where dose is matched to clinical indication); or iterative reconstruction. COMPARISON: CT head wo con* [id number] 03/13/2022 6:06 AM RADIATION DOSE METRICS: Total DLP (mGy-cm): 2316.68 FINDINGS: Brain: No acute hemorrhage identified. No large territorial areas of hypoattenuation concerning for ischemic infarct identified. No intracranial mass effect. Subcortical and periventricular white matter hypoattenuation likely consistent with mild chronic microvascular ischemic disease. Cerebral ventricles: The ventricles are within normal limits. Paranasal sinuses: The visualized sinuses are unremarkable. Mastoid air cells: Fluid in the left mastoid air cells noted same as prior exam. Bones/joints: The osseous structures are intact. Soft tissues: Unremarkable. CT/CT head wo con* [id number] IMPRESSION: 1. No acute intracranial hemorrhage identified. 2. No large territorial infarcts identified. 3. Mild chronic microvascular ischemic disease.
--- NOTE | 2022-03-13 08:52 | PC.NURSE ---
0830 Patient had episode of hypotension at 77/41, with associated diaphoresis. Able to follow commands and A/A/O x 4. Dr. Collins and staff at bedside, TPA just completed. EKG done, FSBS-[address] via cart, nurse accompanied. Patient stable for transfer to CT then ICU. Report to Pretty FRANCO in ICU. Patient stabe with noted BP of 143/83. EDP updated
--- NOTE | 2022-03-13 09:15 | MRR_ITS ---
PROCEDURE INFORMATION: Exam: MR Head Without Contrast Exam date and time: 03/13/2022 5:02 PM Age: 71 years old Clinical indication: Altered mental status/memory loss; Confusion or disorientation; Additional info: Stroke TECHNIQUE: Imaging protocol: MR of the head without contrast. COMPARISON: CT head wo con* [id number] 03/13/2022 8:37 AM FINDINGS: Brain: There is a small focus of restricted diffusion in the posteromedial left frontal lobe measuring 4 mm in size. There is diffuse volume loss. No transcortical edema or mass effect. There is T2/FLAIR periventricular bright signal intensity compatible with chronic small vessel disease changes. Probable small lacunar infarcts are noted in the basal ganglia, deep white matter and aung. Cerebral ventricles: Normal. No ventriculomegaly. Bones/joints: Unremarkable. Paranasal sinuses: There is mild mucosal thickening in the sinuses without air-fluid levels. Mastoid air cells: There are small bilateral mastoid effusions. Orbital cavities: Unremarkable. Soft tissues: Unremarkable. MR/MR head wo con* [id number] IMPRESSION: 1. One tiny area of acute infarction is noted in the posteromedial left frontal lobe measuring about 4 mm. No additional acute infarct. No edema, mass effect or hemorrhage. 2. Mild mucosal thickening in the sinuses in small bilateral mastoid effusions are noted.
[2022-03-13] MEDS: tamsulosin 0.4 mg Capsule PO ×2 (09:38→18:20)
[2022-03-13] MEDS: lisinopril 20 mg Tablet PO (09:38)
[2022-03-13] MEDS: primidone 50 mg Tablet PO ×2 (09:38→18:20)
--- NOTE | 2022-03-13 09:58 | PC.OT ---
PER EMR, TPA ADMINISTERED TO PATIENT THIS AM; WILL HOLD OT EVALUATION UNTIL TOMORROW.
--- NOTE | 2022-03-13 10:33 | PC.PHAR ---
pt states he was taken off Eliquis 5mg BID pending blood clot results.
--- NOTE | 2022-03-13 13:42 | ECG_ITS ---
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 Measurements Intervals [place] Rate: 70 P: 59 NC: 163 QRS: 8 QRSD: 97 T: 62 QT: 424 QTc: 458 Interpretive Statements SINUS RHYTHM NONSPECIFIC T-WAVE ABNORMALITY Compared to ECG 03/13/2022 06:11:40 T-wave abnormality now present Electronically Signed On 03-14-2022 13:27:18 CDT by Kacey Mclaughlin M.D. [email or web address]
[2022-03-13 17:34] LABS: Glucose Point of Care 130 mg/dL (70-110)
--- NOTE | 2022-03-13 19:31 | PC.NURSE ---
Pt's son, Olegario Bai, shared his number in case of overnight emergency. [phone].
--- NOTE | 2022-03-13 19:38 | PC.NURSE ---
Radiology reported to this RN the results of MRI (left frontal infarct) which were conveyed to Dr. Acosta at this time.
[2022-03-13] MEDS: atorvastatin 40 mg Tablet PO (20:57)
[2022-03-13 22:18] LABS: Glucose Point of Care 111 mg/dL (70-110)
[2022-03-13 23:44] LABS: Glucose Point of Care 94 mg/dL (70-110)
[2022-03-14] VITALS (14 sets, daily range): BP systolic 103–139; BP diastolic 51–64; PULSE 65–75; RESP 16–22; TEMP 36.7–36.9; O2SAT 92–98
--- NOTE | 2022-03-14 05:45 | USR_ITS ---
PROCEDURE INFORMATION: Exam: US Duplex Bilateral Extracranial Arteries, Carotid Arteries Exam date and time: 03/14/2022 9:55 AM Age: 71 years old Clinical indication: Walking, difficulty; Patient HX: 3 cts and 1 mri in last 24 hrs. ; Additional info: CVA TECHNIQUE: Imaging protocol: Real-time Duplex ultrasound scan of the bilateral carotid and vertebral arteries combining parnell scale, color Doppler and spectral waveform analysis. Bilateral exam. Exam focused on the carotid arteries. COMPARISON: CT angio headneck* [id number] 10/18/2021 7:31 PM FINDINGS: Right common carotid artery: Proximal 134.4 cm/second. Mid 62.8 cm/second. Distal 70.6 cm/second. Right internal carotid artery: Proximal 87.1 cm/second. Mid 115.8 cm/second. Distal 59.0 cm/second. Right ICA/CCA ratio: 1.84. Right external carotid artery: 93.7 cm/second. Right vertebral artery: 67.3 cm/second, antegrade. Left common carotid artery: Proximal 94.8 cm/second. Mid 94.8 cm/second. Distal 89.3 cm/second. Left internal carotid artery: Left carotid bulb: cm/second. Proximal 78.3 cm/second. Mid 112.5 cm/second. Distal 103.6 cm/second. Left ICA/CCA ratio: 1.19. Left external carotid artery: 108.1 cm/second. Left vertebral artery: 65.1 cm/second, antegrade. Other findings: Right proximal subclavian: 118.0 cm/second, triphasic. Left proximal subclavian: 158.5 cm/second, triphasic. US/CV carotid duplex BI* [id number] IMPRESSION: No hemodynamically significant stenosis by peak systolic velocity criteria. REFERENCES: SRU CRITERIA. The degree of internal carotid artery stenosis is based on criteria defined by the Society of Radiologists in Ultrasound (SRU). Normal is no stenosis. Mild is less than 50% stenosis. Moderate is 50-69% stenosis. Severe is greater than 69% stenosis to near occlusion. Near occlusion is a markedly narrowed lumen. Total occlusion is no detectable patent lumen.
--- NOTE | 2022-03-14 05:45 | USCV_ITS ---
Olegario Bai Age: 71 Gender: M : 1950 Exam Date: 03/14/2022 08:00 Ordering Phys: Bryce Collins DO Technologist: Shawna Nunez Exam Location: [facility] [place] Indication: CVA BP: 151 / 63 HR: 63 Rhythm: Sinus Technical Quality: Adequate MEASUREMENTS (Male / Female) Normal Values 2D ECHO LV Diastolic Diameter PLAX 4.2 cm 4.2 - 5.9 / 3.9 - 5.3 cm LV Systolic Diameter PLAX 2.7 cm LV Chamber Size 3.4 cm IVS Diastolic Thickness 1.3 cm 0.6 - 1.0 / 0.6 - 0.9 cm IVS Systolic Thickness 2.1 cm LVPW Diastolic Thickness 1.6 cm 0.6 - 1.0 / 0.6 - 0.9 cm LVPW Systolic Thickness 2.0 cm RV Chamber Size 4.0 cm LVOT Diameter 2.1 cm LV Ejection Fraction 2D Teich 66.4 % LV Ejection Fraction MOD 2C 38.8 % LV Ejection Fraction 2C AL 39.2 % LA Diameter 4.2 cm LA Width 3.1 cm LA Height 4.9 cm RA Width 3.7 cm RA Height 4.1 cm Aorta at Sinotubular Diameter 3.5 cm M-MODE Aortic Annulus Diameter 3.8 cm LA Ao Ratio MM 1.2 MV E Point Septal Separation 0.6 cm DOPPLER MV Area PHT 3.1 cm squared Mitral E to A Ratio 1.1 MV E' Velocity 40.0 cm/s Mitral E to MV E' Ratio 10.0 Mitral E to LV E' Lateral Ratio 9.2 Mitral E to LV E' Septal Ratio 10.9 TR Peak Velocity 197.3 cm/s TR Peak Gradient 15.6 mmHg TR Mean Velocity 124.8 cm/s TR Mean Gradient 6.5 mmHg TR Velocity Time Integral 40.0 cm TV Peak E Velocity 46.3 cm/s Right Atrial Pressure 8.0 mmHg Pulmonary Artery Systolic Pressu 23.6 mmHg PV Peak Velocity 73.0 cm/s RV Acceleration Time 0.1 s RV Ejection Time 0.4 s RV AcT/ET 0.3 FINDINGS Left Ventricle Normal left ventricular cavity size. Normal left ventricular systolic function. Left ventricular ejection fraction is estimated at 60-65 %. No regional wall motion abnormalities. Right Ventricle Probably upper normal right ventricular size and normal systolic function. Right ventricular systolic pressure 25 mmHg. Right Atrium Normal right atrial size. Left Atrium Normal left atrial size. Mitral Valve Structurally normal mitral valve. No mitral valve stenosis. No significant mitral valve regurgitation. Aortic Valve Probably trileaflet aortic valve. No aortic valve stenosis. No aortic valve regurgitation. Tricuspid Valve Structurally normal tricuspid valve. Trace tricuspid valve regurgitation. Pulmonic Valve Pulmonic valve not well visualized. Pericardium No pericardial effusion. Aorta Normal size aortic root and proximal ascending aorta. CONCLUSIONS 1. This is a technically difficult study. 2. Normal left ventricular cavity size and systolic function. Left ventricular ejection fraction is estimated at 60-65 %. No regional wall motion abnormalities. 3. No cardioembolic source of stroke based on this study. NIURKA may be considered, if clinically indicated. Kacey Mclaughlin MD (Electronically Signed) Final Date: 14 Mar 2022 17:39 S
[2022-03-14 06:11] LABS: Basophils % 0.3 %; Eosinophils # 0.4 10^3/uL (0.0-0.8); Eosinophils % 3.3 %; Hematocrit 41.7 % (42.0-52.0); Hemoglobin 13.3 g/dL (11.7-16.6); Lymphocytes % 17.4 %; Mean Corpuscular HGB Conc 31.9 g/dL (30.0-36.0); Mean Corpuscular Hemoglobin 28.7 pg (28.0-34.0); Mean Corpuscular Volume 89.9 fl (80-94); Mean Platelet Volume 11.4 fL (7.4-10.4); Monocytes # 0.9 10^3/uL (0.2-0.9); Monocytes % 8.1 %; Neutrophils # 8.14 10^3/uL (1.8-7.7); Neutrophils % 70.3 %; Nucleated Red Blood Cells % 0 %; Platelet Count 233 10^3/cmm (130-400); Red Blood Count 4.64 10^6/uL (4.1-5.3); Red Cell Distribution Width 14.1 % (12.1-15.1); White Blood Count 11.6 10^3/uL (4.0-10.0)
[2022-03-14 06:31] LABS: Estmated Average Glucose 114; Hemoglobin A1C 5.6 % (4.0-6.0)
[2022-03-14 06:32] LABS: Anion Gap 9.7 (5-19); Blood Urea Nitrogen 20 mg/dL (8-23); Calcium 8.9 mg/dL (8.5-10.5); Carbon Dioxide 32 mmol/L (22-29); Chloride 102 mmol/L (98-107); Chol HDL Ratio 3.83 mg/dL (1.0-5.00); Cholesterol 115 mg/dL (0-200); Glucose 110 mg/dL (65-115); HDL Cholesterol 30 mg/dL (60-100); LDL Cholesterol Calculated 70 mg/dL (50-129); LDL HDL Ratio 2.33 RATIO (0.00-3.22); Osmolality Calculated 293 mOsm/kg (285-295); Potassium 3.7 mmol/L (3.5-5.1); Sodium 140 mmol/L (136-145); Triglycerides 77 mg/dL (0-150)
--- NOTE | 2022-03-14 07:00 | CTR_ITS ---
PROCEDURE INFORMATION: Exam: CT Head Without Contrast Exam date and time: 03/14/2022 7:39 AM Age: 71 years old Clinical indication: Altered mental status/memory loss; Confusion or disorientation; Additional info: Stroke S/P tpa, [address] follow up TECHNIQUE: Imaging protocol: Computed tomography of the head without contrast. Radiation optimization: All CT scans at this facility use at least one of these dose optimization techniques: automated exposure control; mA and/or kV adjustment per patient size (includes targeted exams where dose is matched to clinical indication); or iterative reconstruction. COMPARISON: 1. MR head wo con* [id number] 03/13/2022 5:[address] head wo con* [id number] 03/13/2022 8:37 AM RADIATION DOSE METRICS: Total DLP (mGy-cm): 1003.98 FINDINGS: Brain: No acute hemorrhage identified. No large territorial areas of hypoattenuation concerning for ischemic infarct identified. Punctate infarct in the left parietal lobe noted on prior MRI, below the sensitivity of CT. Small stable area of encephalomalacia noted on CT and MR adjacent to the infarct again noted. No intracranial mass effect or edema. Cerebral ventricles: The ventricles are within normal limits. Paranasal sinuses: The visualized sinuses are unremarkable. Mastoid air cells: Fluid in the left mastoid air cells again noted. Bones/joints: The osseous structures are intact. Soft tissues: Unremarkable. CT/CT head wo con* [id number] IMPRESSION: 1. No acute intracranial hemorrhage identified. 2. No significant change from prior exam. 3. Punctate infarct in the left parietal lobe noted on prior MRI, below the sensitivity of CT.
--- NOTE | 2022-03-14 07:54 | PC.NURSE ---
Pt taken to CT at 0730. Vitals WNL and pt tolerated well.
[2022-03-14 08:24] LABS: Glucose Point of Care 95 mg/dL (70-110)
[2022-03-14 08:29] LABS: Hematocrit 43.6 % (42.0-52.0); Hemoglobin 13.6 g/dL (11.7-16.6); Mean Corpuscular HGB Conc 31.2 g/dL (30.0-36.0); Mean Corpuscular Hemoglobin 28.3 pg (28.0-34.0); Mean Corpuscular Volume 90.8 fl (80-94); Mean Platelet Volume 11.2 fL (7.4-10.4); Platelet Count 233 10^3/cmm (130-400); Red Cell Distribution Width 14.2 % (12.1-15.1); White Blood Count 11.2 10^3/uL (4.0-10.0)
[2022-03-14] MEDS: perflutren protein-a microsphr 0.22 mg/mL SDV 3 mL IV (08:35)
[2022-03-14] MEDS: primidone 50 mg Tablet PO (09:01)
[2022-03-14] MEDS: tamsulosin 0.4 mg Capsule PO (09:01)
[2022-03-14] MEDS: lisinopril 20 mg Tablet PO (09:01)
--- NOTE | 2022-03-14 09:16 | P.DS_ITS ---
Discharge Providers Date of Admission: 03/13/22 07:39 Date of Discharge: March 14, 2022 Attending Provider at Admission: Eliel Laguerre MD Attending Provider at Discharge: Eliel Laguerre MD Consults: None Primary Care Provider: Kenny Adams MD Diagnoses at Discharge Discharge Diagnosis (1) Cerebrovascular accident: Status: Acute Qualifiers: CVA mechanism: thrombosis Laterality of affected vessel: left Prec erebral and cerebral artery: middle cerebral artery Qualified Code(s): I63.312 - Cerebral infarction due to thrombosis of left middle cerebral artery (2) Hypertension: Status: Acute (3) Urethral stricture: Status: Acute (4) BPH (benign prostatic hyperplasia): Status: Acute (5) Morbid obesity with BMI of 40.0-44.9, adult: Status: Acute (6) Dyslipidemia (high LDL; low HDL): Status: Acute (7) New onset type 2 diabetes mellitus: Status: Acute (8) Essential tremor: Status: Acute Reason for Visit Reason for Visit: UNABLE TO MOVE RIGHT LEG Hospital Course Hospital Course Olegario Bai is a 71 year old male with a past medical history significant for anxiety, benign prostatic hypertrophy, dyslipidemia, hypertension, obesity, type 2 diabetes mellitus, tremor and stroke who presents to the emergency department with stroke-like symptoms consisting of right leg weakness. Patient administered tPA in ED and admitted to ICU for close blood pressure and neuro monitoring. Initial head CT was negative for acute stroke. Head MRI revealed one tiny area of acute infarction in the posteromedial left frontal lobe measuring about 4 mm without edema, mass effect or hemorrhage. Repeat CT head at 24 hours remained negative. Symptoms resolved and he recovered quicker than anticipated. He was treated with dual antiplatlet therapy with aspirin and Plavix for 21 days followed by aspirin daily. Patient follows with Dr Rivera for prior stroke and had been recently taken off apixaban after no evidence of atrial fibri llation was discovered. Patient is to follow up with Dr Rivera and his PCP in 4-7 days for further management. Physical Exam Narrative: General: Patient is awake and alert. Head: Normocephalic. Atraumatic. EOM intact. Neck: No JVD. Cardiovascular: RRR. No gallops. No murmurs. No peripheral edema. Lungs: Clear to auscultation, no use of accessory muscles, no crackles or wheezes. Skin: No jaundice. No rashes. Abdomen: Normal bowel sounds, abdomen soft and nontender. Genito Urinary: Genital exam not performed since complaints not related. Rectal: Rectal exam not performed since no symptoms indicated blood loss. Extremeties: No cyanosis or clubbing. Musculoskeletal: 5/5 strength, normal range of motion, no swollen or erythematous joints. Neurological: Moves all 4 extremities. No myoclonus. Discharge Data Studies Completed and Pending Completed Studies During Hospitalization Category Date Time Status CT head wo con* [id number] Routine Cat Scan 03/14/22 07:[address] head wo con* [id number] Stat Cat Scan 03/13/22 05:[address] head wo con* [id number] Stat Cat Scan 03/13/22 08:26 Completed MR head wo con* [id number] Routine MRI 03/13/22 09:15 Completed Pending at discharge Category Date Time Status Urine Culture Stat Lab 03/13/22 06:20 Results CV carotid duplex BI* [id number] Routine Ultrasound 03/14/22 05:45 Ordered CV. echo wo/w contrast [id number] Routine Ultrasound 03/14/22 05:45 Taken Radiology Impressions Head MRI 03/13/22 09:15 IMPRESSION: 1. One tiny area of acute infarction is noted in the posteromedial left frontal lobe measuring about 4 mm. No additional acute infarct. No edema, mass effect or hemorrhage. 2. Mild mucosal thickening in the sinuses in small bilateral mastoid effusions are noted. ADDENDUM: 03/13/221929 THIS REPORT CONTAINS FINDINGS THAT MAY BE CRITICAL TO PATIENT CARE. The findings were verbally communicated via telephone conference with JOAN Morales at 7:29 PM CDT on 03/13/2022. The findings were acknowledged and understood. Head CT 03/14/22 07:00 IMPRESSION: 1. No acute intracranial hemorrhage identified. 2. No significant change from prior exam. 3. Punctate infarct in the left parietal lobe noted on prior MRI, below the sensitivity of CT. Laboratory Results WBC 11.2 10^3/uL (4.0-10.0) H 03/14/22 08:00 RBC 4.80 10^6/uL (4.1-5.3) 03/14/22 08:00 Hgb 13.6 g/dL (11.7-16.6) 03/14/22 08:00 Hct 43.6 % (42.0-52.0) 03/14/22 08:00 MCV 90.8 fl (80-94) 03/14/22 08:00 MCH 28.3 pg (28.0-34.0) 03/14/22 08:00 MCHC 31.2 g/dL (30.0-36.0) 03/14/22 08:00 RDW 14.2 % (12.1-15.1) 03/14/22 08:00 Plt Count 233 10^3/cmm (130-400) 03/14/22 08:00 MPV 11.2 fL (7.4-10.4) H 03/14/22 08:00 Neut % (Auto) 70.3 % 03/14/22 05:35 Lymph % (Auto) 17.4 % 03/14/22 05:35 [place] % (Auto) 8.1 % 03/14/22 05:35 Eos % (Auto) 3.3 % 03/14/22 05:35 Baso % (Auto) 0.3 % 03/14/22 05:35 Neut # (Auto) 8.14 10^3/uL (1.8-7.7) H 03/14/22 05:35 Lymph # (Auto) 2.0 10^3/uL (0.8-4.8) 03/14/22 05:35 [place] # (Auto) 0.9 10^3/uL (0.2-0.9) 03/14/22 05:35 Eos # (Auto) 0.4 10^3/uL (0.0-0.8) 03/14/22 05:35 Baso # (Auto) 0.0 10^3/uL (0.0-0.1) 03/14/22 05:35 Nucleated RBC % (auto) 0 % 03/14/22 05:35 Nucleated RBCs # 0.0 /100WBC 03/14/22 05:35 PT 14.20 SECONDS (12.1-14.9) 03/13/22 06:20 INR 1.07 (0.8-1.2) 03/13/22 06:20 APTT 29.6 SECONDS (23.9-36.7) 03/13/22 06:20 Sodium 140 mmol/L (136-145) 03/14/22 05:35 Potassium 3.7 mmol/L (3.5-5.1) 03/14/22 05:35 Chloride 102 mmol/L (98-107) 03/14/22 05:35 Carbon Dioxide 32 mmol/L (22-29) H 03/14/22 05:35 Anion Gap 9.7 (5-19) 03/14/22 05:35 BUN 20 mg/dL (8-23) 03/14/22 05:35 Creatinine 0.9 mg/dL (0.7-1.2) 03/14/22 05:35 GFR Calculation Not Reportable 03/14/22 05:35 Glucose 110 mg/dL (65-115) 03/14/22 05:35 POC Glucose 95 mg/dL (70-110) 03/14/22 08:21 Estimat Average Glucose 114 03/14/22 05:35 Hemoglobin A1c 5.6 % (4.0-6.0) 03/14/22 05:35 Calculated Osmolality 293 mOsm/kg (285-295) 03/14/22 05:35 Calcium 8.9 mg/dL (8.5-10.5) 03/14/22 05:35 Total Bilirubin 0.8 mg/dL (0.15-1.2) 03/13/22 06:20 AST 9 U/L (0-40) 03/13/22 06:20 ALT 8 U/L (0-41) 03/13/22 06:20 Alkaline Phosphatase 77 IU/L (40-130) 03/13/22 06:20 Total Protein 6.6 g/dL (6.6-8.7) 03/13/22 06:20 Albumin 3.6 g/dL (3.5-5.2) 03/13/22 06:20 Globulin 3.0 g/dL (1.3-4.6) 03/13/22 06:20 Triglycerides 77 mg/dL (0-150) 03/14/22 05:35 Cholesterol 115 mg/dL (0-200) 03/14/22 05:35 LDL Cholesterol, Calc 70 mg/dL (50-129) 03/14/22 05:35 HDL Cholesterol 30 mg/dL (60-100) L 03/14/22 05:35 LDL/HDL Ratio 2.33 RATIO (0.00-3.22) 03/14/22 05:35 Cholesterol/HDL Ratio 3.83 mg/dL (1.0-5.00) 03/14/22 05:35 Urine Color Yellow (Yellow) 03/13/22 06:20 Urine Appearance Clear (CLEAR) 03/13/22 06:20 Urine pH 5 (5-7) 03/13/22 06:20 Ur Specific [place] 1.020 (1.005-1.030) 03/13/22 06:20 Urine Protein Neg (Negative) 03/13/22 06:20 Urine Glucose (UA) Norm (Normal) 03/13/22 06:20 Urine Ketones Negative (Negative) 03/13/22 06:20 Urine Blood 3+ (Negative) H 03/13/22 06:20 Urine Nitrate Negative (Negative) 03/13/22 06:20 Urine Bilirubin Neg (Negative) 03/13/22 06:20 Urine Urobilinogen 4 mg/dL (Negative) H 03/13/22 06:20 Ur Leukocyte Esterase Trace (Negative) H 03/13/22 06:20 Urine RBC 10-15 /hpf (0-2) H 03/13/22 06:20 Urine WBC 0-4 /hpf (0-5) H 03/13/22 06:20 Ur Squamous Epith Cells None /hpf (0-5) 03/13/22 06:20 Amorphous Sediment Not Reportable 03/13/22 06:20 Urine Bacteria Trace /hpf (NONE) 03/13/22 06:20 Urine Opiates Screen Negative ng/mL (Negative) 03/13/22 06:20 Ur Barbiturates Screen Positive ng/mL (Negative) H 03/13/22 06:20 Ur Phencyclidine Scrn Negative ng/mL (Negative) 03/13/22 06:20 Ur Amphetamines Screen Negative ng/mL (Negative) 03/13/22 06:20 U Benzodiazepines Scrn Negative ng/mL (Negative) 03/13/22 06:20 Urine Cocaine Screen Negative ng/mL (Negative) 03/13/22 06:20 U Marijuana (THC) Screen Negative ng/mL (Negative) 03/13/22 06:20 Procedures Performed None Vitals Last Vital Signs Temp 98.5 F 03/14/22 04:00 Pulse 66 03/14/22 06:30 Resp 17 03/14/22 06:30 BP 133/57 03/14/22 06:30 Pulse Ox 92 03/14/22 06:30 Discharge Plan Discharge Patient Disposition: Home Condition: Stable Prescriptions: New Adult Aspirin Regimen 81 mg tablet,delayed release (DR/EC) 81 mg PO DAILY Qty: 90 0RF Plavix 75 mg tablet 75 mg PO DAILY 20 Days Qty: 20 0RF Continued niacin 500 mg tablet 500 mg PO DAILY Qty: 30 5RF diclofenac sodium 75 mg tablet,delayed release (DR/EC) 75 mg PO BID PRN (Reason: pain) Qty: 180 1RF lisinopril 20 mg tablet 20 mg PO DAILY Qty: 90 2RF furosemide 40 mg tablet 40 mg PO QAM Qty: 30 5RF metformin 500 mg tablet 500 mg PO DAILY Qty: 30 5RF primidone 50 mg tablet 50 mg PO BID Qty: 60 3RF tamsulosin 0.4 mg capsule 0.4 mg PO BID Qty: 180 3RF atorvastatin 40 mg tablet 40 mg PO BEDTIME 0RF Rx Instructions: TAKE 1 TABLET BY MOUTH AT BEDTIME hydrocodone-acetaminophen 5-325 mg tablet 1 tab PO Q8H PRN (Reason: pain) Qty: 9 0RF Discontinued aspirin 325 mg tablet 325 mg PO EVERY OTHER DAY 0RF Discharge Orders: Discharge Order (Routine); Ordered 03/14/22 Ordered By: Eliel Laguerre Referrals: Collette Rivera MD [Physician] - 4-7 days Kenny Adams MD [Primary Care Provider] - 4-7 days Discharge Diet: Cardiac and Diabetic Discharge Activity: Increase activity as tolerated Patient Instructions: Opioid Safety Activity Restrictions/Additional Instructions: Increase physical activity as tolerated. No driving until released by primary care provider or neurology. Discharge Attestations Time Spent in Discharge Care*: greater than 30 min Quality Metrics Clinical Quality Measures [ No reported AMI, CVA or VTE this stay] Coding Level of Care Code Acute Chg FW DC note Diagnoses Cerebrovascular accident I63.312 CVA mechanism: thrombosis Laterality of affected vessel: left Precerebral and cerebral artery: middle cerebral artery Hypertension I10 Urethral stricture N35.919 BPH (benign prostatic hyperplasia) N40.0 Morbid obesity with BMI of 40.0-44.9, adult E66.01; Z68.41 Dyslipidemia (high LDL; low HDL) E78.5 New onset type 2 diabetes mellitus E11.9 Essential tremor G25.0
[2022-03-14] MEDS: clopidogrel 75 mg Tablet PO (11:29)
[2022-03-14] MEDS: aspirin 81 mg EC Tablet PO (11:29)
--- NOTE | 2022-03-14 12:31 | PC.NURSE ---
Pt was given all discharge instructions and pt verbalized understanding. Stated that he would call and set up all follow up appointments. Taken out to personal vehicle will all belongings.
--- NOTE | 2022-04-01 15:58 | PC.NURSE ---
Attempted to contact patient per request of Nkechi Michel RN to address concerns brought forth regarding previous stay. Called patient at number [phone]. No answer from patient. Left voicemail with my direct number.
== END 2022-03-14 11:50 | disposition home or self-care (01) | DRG 62 ==
LOC: ER 07:56 → ICU 08:03
PROVIDERS: Admitting Provider Internal Medicine; Emergency Provider Family Medicine; PCP Family Medicine Adult Medicine; Visit Provider Internal Medicine
DX: I63.312 Cerebral infarction due to thrombosis of left middle cerebral artery (principal); N13.8 Other obstructive and reflux uropathy; Z68.41 Body mass index [BMI] 40.0-44.9, adult; G83.11 Monoplegia of lower limb affecting right dominant side; R29.703 NIHSS score 3; I10 Essential (primary) hypertension; Z86.73 Personal history of transient ischemic attack (TIA), and cerebral infarction without residual deficits; N40.1 Benign prostatic hyperplasia with lower urinary tract symptoms; E78.5 Hyperlipidemia, unspecified; E66.01 Morbid (severe) obesity due to excess calories; E11.9 Type 2 diabetes mellitus without complications; Z87.440 Personal history of urinary (tract) infections; F17.220 Nicotine dependence, chewing tobacco, uncomplicated; F41.9 Anxiety disorder, unspecified; G25.0 Essential tremor; Z79.84 Long term (current) use of oral hypoglycemic drugs; Z79.891 Long term (current) use of opiate analgesic
CPT/HCPCS: 36415; 36416; 70450; 70551; 80048; 80053; 80061; 80306; 81001; 82962; 83036; 85025; 85027; 85610; 85730; 87086; 92507; 92523; 92526; 92610; 93005; 93880; 97161; 97165; 97530; 99285; C8929; J2997; Q9956

== ENCOUNTER 2022-03-14 12:46 | Observation (INO) | payer MEDICARE, SELFPAY ==
[2022-03-14 13:01] VITALS: BP 140/71; PULSE 71; RESP 18; TEMP 36.7; O2SAT 98; BMI 44.4
--- NOTE | 2022-03-14 13:43 | ECG_ITS ---
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 Measurements Intervals [place] Rate: 66 P: 60 FL: 170 QRS: 2 QRSD: 97 T: 43 QT: 376 QTc: 395 Interpretive Statements SINUS RHYTHM MINIMAL VOLTAGE CRITERIA FOR LVH, CONSIDER NORMAL VARIANT [MEETS CRITERIA IN ONE OF: R(aVL), S(V1), R(V5), R(V5/V6)+S(V1)] Compared to ECG 03/13/2022 08:23:08 T-wave abnormality no longer present Electronically Signed On 03-15-2022 17:39:46 CDT by Kacey Mclaughlin M.D. [id number]
[2022-03-14 13:48] LABS: Basophils # 0.1 10^3/uL (0.0-0.1); Basophils % 0.5 %; Eosinophils # 0.3 10^3/uL (0.0-0.8); Hematocrit 44.2 % (42.0-52.0); Hemoglobin 14.1 g/dL (11.7-16.6); Lymphocytes # 1.7 10^3/uL (0.8-4.8); Lymphocytes % 16.4 %; Mean Corpuscular HGB Conc 31.9 g/dL (30.0-36.0); Mean Corpuscular Hemoglobin 28.5 pg (28.0-34.0); Mean Corpuscular Volume 89.5 fl (80-94); Mean Platelet Volume 10.9 fL (7.4-10.4); Monocytes % 9.2 %; Neutrophils % 70.3 %; Nucleated Red Blood Cells % 0 %; Platelet Count 221 10^3/cmm (130-400); Red Blood Count 4.94 10^6/uL (4.1-5.3); Red Cell Distribution Width 13.8 % (12.1-15.1); White Blood Count 10.4 10^3/uL (4.0-10.0)
[2022-03-14 14:07] LABS: Alanine Aminotransferase 7 U/L (0-41); Albumin Level 3.5 g/dL (3.5-5.2); Alkaline Phosphatase 72 IU/L (40-130); Anion Gap 10.8 (5-19); Aspartate Amino Transferase 8 U/L (0-40); Blood Urea Nitrogen 21 mg/dL (8-23); Calcium 9.3 mg/dL (8.5-10.5); Carbon Dioxide 31 mmol/L (22-29); Chloride 102 mmol/L (98-107); Globulin 2.2 g/dL (1.3-4.6); Glucose 93 mg/dL (65-115); Lipase 14 U/L (13-60); Osmolality Calculated 293 mOsm/kg (285-295); Potassium 3.8 mmol/L (3.5-5.1); Sodium 140 mmol/L (136-145); Total Bilirubin 0.6 mg/dL (0.15-1.2); Total Protein 5.7 g/dL (6.6-8.7)
[2022-03-14 14:10] LABS: Troponin(5th) Baseline 10 ng/L (0-15)
--- NOTE | 2022-03-14 14:20 | ED_ITS ---
HPI - Neuro Symptoms/Deficit General: Chief Complaint: Neuro Symptoms/Deficit Stated Complaint: Left leg/arm tingling, confusion Time Seen by Provider: 03/14/22 13:13 PFSH ED PFSH: Medical History Anxiety about health BPH (benign prostatic hyperplasia) Dyslipidemia (high LDL; low HDL) Hypertension Knee gives out Morbid obesity with BMI of 40.0-44.9, adult New onset type 2 diabetes mellitus Osteoarthritis of both knees Urethral stricture UTI (urinary tract infection) Surgical History Hx of appendectomy Family History Father , AT AGE 82 Brain tumor Mother , AT AGE 63 Bleeding disorder Other CAD (coronary artery disease) Cancer Diabetes Hyperlipidemia Hypertension Lung disease Psychiatric illness Stroke Social History Smoking and tobacco status: current every day smoker smokeless tobacco Alcohol intake: never Marital status: Number of children: 3 Number of grandchildren: 4 Current occupational status: 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, History of recent travel: No Course Vital Signs: Vital signs: Vital Signs Temperature 98.0 F 03/14/22 13:01 Pulse Rate 71 03/14/22 13:01 Respiratory Rate 18 03/14/22 13:01 Blood Pressure 140/71 03/14/22 13:01 Pulse Oximetry 98 03/14/22 13:01 MDM - Neuro Symptoms/Deficit Lab Data : 03/14/22 13:35 03/14/22 13:35 Laboratory Results WBC 10.4 10^3/uL (4.0-10.0) H 03/14/22 13:35 RBC 4.94 10^6/uL (4.1-5.3) 03/14/22 13:35 Hgb 14.1 g/dL (11.7-16.6) 03/14/22 13:35 Hct 44.2 % (42.0-52.0) 03/14/22 13:35 MCV 89.5 fl (80-94) 03/14/22 13:35 MCH 28.5 pg (28.0-34.0) 03/14/22 13:35 MCHC 31.9 g/dL (30.0-36.0) 03/14/22 13:35 RDW 13.8 % (12.1-15.1) 03/14/22 13:35 Plt Count 221 10^3/cmm (130-400) 03/14/22 13:35 MPV 10.9 fL (7.4-10.4) H 03/14/22 13:35 Neut % (Auto) 70.3 % 03/14/22 13:35 Lymph % (Auto) 16.4 % 03/14/22 13:35 [place] % (Auto) 9.2 % 03/14/22 13:35 Eos % (Auto) 3.0 % 03/14/22 13:35 Baso % (Auto) 0.5 % 03/14/22 13:35 Neut # (Auto) 7.30 10^3/uL (1.8-7.7) 03/14/22 13:35 Lymph # (Auto) 1.7 10^3/uL (0.8-4.8) 03/14/22 13:35 [place] # (Auto) 1.0 10^3/uL (0.2-0.9) H 03/14/22 13:35 Eos # (Auto) 0.3 10^3/uL (0.0-0.8) 03/14/22 13:35 Baso # (Auto) 0.1 10^3/uL (0.0-0.1) 03/14/22 13:35 Nucleated RBC % (auto) 0 % 03/14/22 13:35 Nucleated RBCs # 0.0 /100WBC 03/14/22 13:35 Sodium 140 mmol/L (136-145) 03/14/22 13:35 Potassium 3.8 mmol/L (3.5-5.1) 03/14/22 13:35 Chloride 102 mmol/L (98-107) 03/14/22 13:35 Carbon Dioxide 31 mmol/L (22-29) H 03/14/22 13:35 Anion Gap 10.8 (5-19) 03/14/22 13:35 BUN 21 mg/dL (8-23) 03/14/22 13:35 Creatinine 0.8 mg/dL (0.7-1.2) 03/14/22 13:35 GFR Calculation Not Reportable 03/14/22 13:35 Glucose 93 mg/dL (65-115) 03/14/22 13:35 Calculated Osmolality 293 mOsm/kg (285-295) 03/14/22 13:35 Calcium 9.3 mg/dL (8.5-10.5) 03/14/22 13:35 Total Bilirubin 0.6 mg/dL (0.15-1.2) 03/14/22 13:35 AST 8 U/L (0-40) 03/14/22 13:35 ALT 7 U/L (0-41) 03/14/22 13:35 Alkaline Phosphatase 72 IU/L (40-130) 03/14/22 13:35 Troponin T Baseline 10 ng/L (0-15) 03/14/22 13:35 Total Protein 5.7 g/dL (6.6-8.7) L 03/14/22 13:35 Albumin 3.5 g/dL (3.5-5.2) 03/14/22 13:35 Globulin 2.2 g/dL (1.3-4.6) 03/14/22 13:35 Lipase 14 U/L (13-60) 03/14/22 13:35 Discharge Plan Discharge Condition: Stable Prescriptions: No Action niacin 500 mg tablet 500 mg PO DAILY Qty: 30 5RF diclofenac sodium 75 mg tablet,delayed release (DR/EC) 75 mg PO BID PRN (Reason: pain) Qty: 180 1RF lisinopril 20 mg tablet 20 mg PO DAILY Qty: 90 2RF furosemide 40 mg tablet 40 mg PO QAM Qty: 30 5RF metformin 500 mg tablet 500 mg PO DAILY Qty: 30 5RF primidone 50 mg tablet 50 mg PO BID Qty: 60 3RF tamsulosin 0.4 mg capsule 0.4 mg PO BID Qty: 180 3RF aspirin [Adult Aspirin Regimen] 81 mg tablet,delayed release (DR/EC) 81 mg PO DAILY Qty: 90 0RF clopidogrel [Plavix] 75 mg tablet 75 mg PO DAILY 20 Days Qty: 20 0RF atorvastatin 40 mg tablet 40 mg PO BEDTIME 0RF Rx Instructions: TAKE 1 TABLET BY MOUTH AT BEDTIME hydrocodone-acetaminophen 5-325 mg tablet 1 tab PO Q8H PRN (Reason: pain) Qty: 9 0RF Referrals: Kenny Adams MD [Primary Care Provider] - Coding Level of Care Code ED Video Games Storywriter for Mauri Finney
--- NOTE | 2022-03-14 14:23 | ED_ITS ---
HPI - General Adult General: Chief complaint: Neuro Symptoms/Deficit Stated complaint: Left leg/arm tingling, confusion Time Seen by Provider: 03/14/22 13:13 History of Present Illness: Patient is a 71-year-old male with a history of prior stroke presenting to the emergency room after shortly after discharged earlier today from the hospital. Patient was initially admitted yesterday on 03/13/2022 for concerns of right-sided leg weakness. Patient had NIH stroke scale of 3 and [facility] recommended pushing tPA. Patient received tPA and was admitted to the ICU. MRI showed an acute posterior medial left frontal lobe infarction measuring 4 mm. Patient subsequently underwent stroke work-up including carotid Doppler and echo. Since discharge around 9:00 this morning, patient was riding home with family when suddenly he developed right-sided facial droop and slurring speech. Family then brought patient to the emergency room for evaluation. However, patient still complains of right leg heaviness. On neurological exam, patient has an NIH stroke scale of 2 for slurring of speech and mild R sided facial droop. Patient has 5 out of 5 strength in the right lower extremity. Rest of exam unremarkable. Patient has no other complaints at this time. Patient has been started on aspirin and Plavix daily per discharge earlier today. Onset:30 minutes ago Duration:30minutes Location:home Severity:acute Associated symptoms: Deny chest pain, dyspnea, nausea, rash, palpitations or vomiting Review of Systems Const: Denies: fever(s) or chills Eyes: Denies: change in vision ENMT: Denies: mouth pain Card: Denies: chest pain or palpitations Resp: Denies: dyspnea or non-productive cough GI: Denies: abdominal pain, nausea, vomiting or diarrhea : Denies: dysuria Musc: Denies: extremity pain Skin/Breast: Denies: rash or new lesions Neuro: Reports: weakness in extremities (+3 days of R leg weakness) and other (+30 minutes of slurring of speech and R facial droop) Psych: Reports: other (Normal mood) Jez/Lymph: Denies: easy bruising [facility] ED PFSH: Medical History (Updated 03/14/22 @ 17:43 by Eliel Laguerre MD) Anxiety about health BPH (benign prostatic hyperplasia) Dyslipidemia (high LDL; low HDL) Hypertension Knee gives out Morbid obesity with BMI of 40.0-44.9, adult New onset type 2 diabetes mellitus Osteoarthritis of both knees Tobacco use Urethral stricture UTI (urinary tract infection) Surgical History Hx of appendectomy Family History Father , AT AGE 82 Brain tumor Mother , AT AGE 63 Bleeding disorder Other CAD (coronary artery disease) Cancer Diabetes Hyperlipidemia Hypertension Lung disease Psychiatric illness Stroke Social History Smoking and tobacco status: current every day smoker smokeless tobacco Alcohol intake: never Marital status: Number of children: 3 Number of grandchildren: 4 Current occupational status: 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, History of recent travel: No Physical Exam Const: COMMON NORMALS: alert HENMT: COMMON NORMALS: atraumatic HEAD & SCALP: atraumatic MOUTH: moist mucous membranes not abnormal Eye: COMMON NORMALS: EOMs intact bilaterally and conjunctivae normal CONJUNCTIVA: Yes conjunctivae normal Neck/C-Spine: COMMON NORMALS: full ROM and supple Resp: COMMON NORMALS: normal respiratory effort and clear to auscultation bilaterally AUSCULTATION: clear to auscultation bilaterally Cardio: COMMON NORMALS: regular rate RATE: regular rate GI: COMMON NORMALS: Soft to palpation and non-tender PALPATION: Yes Soft to palpation Extremity: COMMON NORMALS: full ROM Neuro: SENSORIUM/ORIENTATION: Yes alert MOTOR EXAM: No Abnormal motor s trength present and Other motor observations present (no focal motor deficits) OTHER: NEURO: NIHSS: 2 1. Level of Consciousness A) LOC Responsiveness 0 B) LOC Questions 0 C) LOC Commands 0 2. Horizontal Eye Movement 0 3. Visual field test 0 4. Facial Palsy 1 5. Motor Arm 0 6. Motor Leg 0 7. Limb Ataxia 0 8. Sensation 0 9. Language 1 10. Speech 0 11. Extinction and Inattention 0 PSYCH: Normal mood and affect. Psych: COMMON NORMALS: speech normal SPEECH: Yes normal speech MOOD & AFFECT: Yes euthymic mood Course Vital Signs: Vital signs: Vital Signs Temperature 98.0 F 03/14/22 13:01 Pulse Rate 75 03/14/22 15:01 Respiratory Rate 15 03/14/22 15:01 Blood Pressure 126/65 03/14/22 15:01 Pulse Oximetry 96 03/14/22 15:01 MDM - General Adult Medical Decision Making 71-year-old male with a history of recent stroke status post tPA on 03/13/2022 recently discharged to the hospital this morning presenting with new onset of facial droop right side and slurring of speech. Patient has NIH stroke scale of 2. Discussed with [facility] who tells me that since patient has completed stroke work-up and has had tPA yesterday, he is not a candidate for tPA currently without any stroke scale of 2. [facility] neurologist Dr. Freeman who recommended MR angio of the head and neck and NIURKA evaluation for possible occult clot in the left atrial appendage and cardiac monitoring. At 3 PM, family and patient elect to have patient transferred to for management of symptoms. Lab showed possible UTI. S/p ceftriaxone in the ED. We called who tells me at this time that they do not have any beds. At 6:00pm Patient and family electing to leave AMA. Patient counseled regarding risks of leaving including severe morbidity, brain , hypoxia, arrythmia, , chest pain, or any other unwanted consequences of leaving against medical advice today. Patient verbalizes understanding of the risks and still wishes to leave AMA. Signed AMA paperwork. Patient advised that patient is welcome to return at any time. Was instructed that patient may come back if symptoms continue to persist and that emergent adverse conditions have not fully been ruled out. Patient is A&Ox3 and has capacity and is of sound mind to make decisions. Disposition: AMA Lab Data : 03/14/22 13:35 03/14/22 13:35 Laboratory Results WBC 10.4 10^3/uL (4.0-10.0) H 03/14/22 13:35 RBC 4.94 10^6/uL (4.1-5.3) 03/14/22 13:35 Hgb 14.1 g/dL (11.7-16.6) 03/14/22 13:35 Hct 44.2 % (42.0-52.0) 03/14/22 13:35 MCV 89.5 fl (80-94) 03/14/22 13:35 MCH 28.5 pg (28.0-34.0) 03/14/22 13:35 MCHC 31.9 g/dL (30.0-36.0) 03/14/22 13:35 RDW 13.8 % (12.1-15.1) 03/14/22 13:35 Plt Count 221 10^3/cmm (130-400) 03/14/22 13:35 MPV 10.9 fL (7.4-10.4) H 03/14/22 13:35 Neut % (Auto) 70.3 % 03/14/22 13:35 Lymph % (Auto) 16.4 % 03/14/22 13:35 [place] % (Auto) 9.2 % 03/14/22 13:35 Eos % (Auto) 3.0 % 03/14/22 13:35 Baso % (Auto) 0.5 % 03/14/22 13:35 Neut # (Auto) 7.30 10^3/uL (1.8-7.7) 03/14/22 13:35 Lymph # (Auto) 1.7 10^3/uL (0.8-4.8) 03/14/22 13:35 [place] # (Auto) 1.0 10^3/uL (0.2-0.9) H 03/14/22 13:35 Eos # (Auto) 0.3 10^3/uL (0.0-0.8) 03/14/22 13:35 Baso # (Auto) 0.1 10^3/uL (0.0-0.1) 03/14/22 13:35 Nucleated RBC % (auto) 0 % 03/14/22 13:35 Nucleated RBCs # 0.0 /100WBC 03/14/22 13:35 Sodium 140 mmol/L (136-145) 03/14/22 13:35 Potassium 3.8 mmol/L (3.5-5.1) 03/14/22 13:35 Chloride 102 mmol/L (98-107) 03/14/22 13:35 Carbon Dioxide 31 mmol/L (22-29) H 03/14/22 13:35 Anion Gap 10.8 (5-19) 03/14/22 13:35 BUN 21 mg/dL (8-23) 03/14/22 13:35 Creatinine 0.8 mg/dL (0.7-1.2) 03/14/22 13:35 GFR Calculation Not Reportable 03/14/22 13:35 Glucose 93 mg/dL (65-115) 03/14/22 13:35 Calculated Osmolality 293 mOsm/kg (285-295) 03/14/22 13:35 Calcium 9.3 mg/dL (8.5-10.5) 03/14/22 13:35 Total Bilirubin 0.6 mg/dL (0.15-1.2) 03/14/22 13:35 AST 8 U/L (0-40) 03/14/22 13:35 ALT 7 U/L (0-41) 03/14/22 13:35 Alkaline Phosphatase 72 IU/L (40-130) 03/14/22 13:35 Troponin T Baseline 10 ng/L (0-15) 03/14/22 13:35 Troponin T 120 Minute 10.37 ng/L (0-15) 03/14/22 15:31 Delta Troponin T 0.37 ABS# (0-10) 03/14/22 15:31 Total Protein 5.7 g/dL (6.6-8.7) L 03/14/22 13:35 Albumin 3.5 g/dL (3.5-5.2) 03/14/22 13:35 Globulin 2.2 g/dL (1.3-4.6) 03/14/22 13:35 Lipase 14 U/L (13-60) 03/14/22 13:35 Urine Color Brown (Yellow) 03/14/22 14:25 Urine Appearance Bloody (CLEAR) A 03/14/22 14:25 Urine pH 6.5 (5-7) 03/14/22 14:25 Ur Specific [place] 1.030 (1.005-1.030) 03/14/22 14:25 Urine Protein 2+ (Negative) H 03/14/22 14:25 Urine Glucose (UA) 1+ (Normal) H 03/14/22 14: Urine Ketones Negative (Negative) 03/14/22 14: Urine Blood 3+ (Negative) H 03/14/22 14:25 Urine Nitrate Positive (Negative) H 03/14/22 14:25 Urine Bilirubin Neg (Negative) 03/14/22 14: Urine Urobilinogen Norm mg/dL (Negative) 03/14/22 14:25 Ur Leukocyte Esterase 2+ (Negative) H 03/14/22 14:25 Urine RBC >100 /hpf (0-2) H 03/14/22 14:25 Urine WBC 25-40 /hpf (0-5) H 03/14/22 14:25 Ur Squamous Epith Cells None /hpf (0-5) 03/14/22 14:25 Amorphous Sediment Not Reportable 03/14/22 14:25 Urine Bacteria 3+ /hpf (NONE) H 03/14/22 14:25 Discharge Plan Discharge Patient Disposition: Left Against Medical Advice Clinical Impression: Slurred speech, Facial droop Condition: Stable Coding Level of Care Code ED Vegetable Preparer for Maciel[facility] Fwd Exam Comprehensive
[2022-03-14 14:29] VITALS: BP 126/65; PULSE 73; RESP 18; O2SAT 94
[2022-03-14 14:55] LABS: Glucose Urine UA 1+ (Normal); Ketones Urine Negative (Negative); Protein Urine 2+ (Negative); Urine Appearance Bloody (CLEAR); Urine Color Brown (Yellow); pH Urine 6.5 (5-7)
[2022-03-14 14:56] LABS: Add Urine Microscopic? YES; Bilirubin Urine Neg (Negative); Blood Urine 3+ (Negative); Leukocyte Esterase Urine 2+ (Negative); Nitrate Urine Positive (Negative); Urobilinogen Urine Norm (Negative)
[2022-03-14 15:01] VITALS: BP 126/65; PULSE 75; RESP 15; O2SAT 96
[2022-03-14 15:06] LABS: Add Urine Culture? Yes; Bacteria Urine 3+ /hpf; RBC Urine >100 /hpf (0-2); WBC Urine 25-40 /hpf (0-5)
--- NOTE | 2022-03-14 15:43 | ECG_ITS ---
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 Measurements Intervals [place] Rate: 73 P: 74 AK: 176 QRS: 8 QRSD: 97 T: 48 QT: 380 QTc: 421 Interpretive Statements SINUS RHYTHM Compared to ECG 03/14/2022 14:02:31 No significant changes Electronically Signed On 03-15-2022 17:43:45 CDT by Kacey Mclaughlin M.D. [id number]
[2022-03-14 16:23] LABS: Troponin 5 2HR 10.37 ng/L (0-15)
[2022-03-14] MEDS: cefTRIAXone 1,000 MG in sodium chloride 0.9% (plus) 50 ML 100 MG IV (16:29)
--- NOTE | 2022-03-14 16:39 | PM.HP ---
Providers/Chief Complaint Admitting Physician: Eliel Laguerre Primary Care Provider: Kenny Adams MD Chief Complaint: Left leg/arm tingling, confusion History of Present Illness Olegario Bai is a 71 year old male with a past medical history significant for anxiety, benign prostatic hypertrophy, dyslipidemia, hypertension, obesity, type 2 diabetes mellitus, tremor and stroke who represents to the emergency department with recurrent stroke symptoms after being discharged prior in the day. Of note, patient initially presented on 03/13 with right leg weakness. Initial non-contrast head CT was negative for acute stroke. He was given tPA in the ED. ED course was complicated transient hypotension which resolved with IV fluids. Repeat non-contrast head CT was unchanged. He was admitted to the ICU for close monitoring. Head MRI revealed one tiny area of acute infarction in the posteromedial left frontal lobe measuring 4 mm without edema, mass effect, or hemhorrage. Carotid ultrasound showed no hemodynamically significant stenosis by peak systolic velocity criteria. No acute findings on TTE. No atrial fibrillation was observed on telemetry monitoring. Repeat non-contrast head CT was negative for intracranial hemorrhage. Symptoms resolved and neurological exam was unremarkable on 03/14. He was ambulating around unit without issue. He was discharged on dual anti-platelet therapy with asprin and Plavix, as well as high intensity statin. Patient reports on his ride home, they stopped to see his daughter at a gas station where she works. He reports while there, symptoms returned. He states he had confusion, right lower greater than upper extremity numbness/tinging with associated weakness, facial droop, and slurred speech. Reports this was around 1 pm. He reports symptoms were the same as he experienced on 03/13. Upon my evaluation at 5 pm in ED, patient reports symptoms have again resolved. He denies additional new focal deficits, headaches, chest pain, palpitations, fevers, or chills. Of note, patient has a history of prior stroke for which he was admitted in 09/2021 after presenting with right arm motor aphasia.? At that time, he received tPA as well with resolution of symptoms.? At discharge, he was placed on aspirin and Eliquis.? There was reportedly no atrial fibrillation observed during that admission and he was discharged on an event monitor.? He follows with Dr. Rivera, last seen 03/03/22.? Per last note, there was concern for possible atrial fibrillation per the daughter reportedly told to her by the EMS crew that transported him, however per Dr. Rivera's note, Air-Evac telemetry strips were reviewed and negative for any evidence of atrial fibrillation.? His event monitor as outpatient was negative for atrial fibrillation.? Therefore his apixaban was discontinued around 03/04 as there was no definitive evidence of atrial fibrillation, and he had an upcoming urological procedure which was performed on 03/08. In the ED today, [facility] neurology was consulted and recommended further evaluation with MRA head/neck as well as a transesophageal echocardiogram. Urinalysis also concerning for UTI for which he received cefriaxone. Review of Systems Narrative: A complete review of systems was obtained and is negative except as stated in HPI. Medications/Allergies Home Medications Medication Instructions Recorded Confirmed Last Taken Type niacin 500 mg tablet 500 mg PO DAILY #30 tab 08/28/21 03/14/22 03/14/22 Rx metformin 500 mg tablet 500 mg PO DAILY #30 tab 10/27/21 03/14/22 03/14/22 Rx primidone 50 mg tablet 50 mg PO BID #60 tab 11/10/21 03/14/22 03/14/22 Rx diclofenac sodium 75 mg 75 mg PO BID PRN #180 tab 11/27/21 03/14/22 03/07/22 Rx tablet,delayed release furosemide 40 mg tablet 40 mg PO QAM #30 tab 11/27/21 03/14/22 03/14/22 Rx lisinopril 20 mg tablet 20 mg PO DAILY #90 tab 11/27/21 03/14/22 03/14/22 Rx tamsulosin 0.4 mg capsule 0.4 mg PO BID #180 cap 02/12/22 03/14/22 03/14/22 Rx atorvastatin 40 mg tablet 40 mg PO BEDTIME 03/05/22 03/14/22 03/13/22 History hydrocodone 5 mg-acetaminophen 325 1 tab PO Q8H PRN #9 tab 03/08/22 03/14/22 Unknown Rx mg tablet aspirin 81 mg tablet,delayed 81 mg PO DAILY #90 tab 03/14/22 03/14/22 03/14/22 Rx release (Adult Aspirin Regimen) clopidogrel 75 mg tablet (Plavix) 75 mg PO DAILY 20 Days #20 tab 03/14/22 03/14/22 03/14/22 Rx Allergies Allergy/AdvReac Type Severity Reaction Status Date / Time No Known Allergies Allergy Verified 03/12/22 10:29 PFSH Acute PFSH: Medical History (Updated 03/14/22 @ 17:43 by Eliel Laguerre MD) Anxiety about health BPH (benign prostatic hyperplasia) Dyslipidemia (high LDL; low HDL) Hypertension Knee gives out Morbid obesity with BMI of 40.0-44.9, adult New onset type 2 diabetes mellitus Osteoarthritis of both knees Tobacco use Urethral stricture UTI (urinary tract infection) Surgical History Hx of appendectomy Family History Father , AT AGE 82 Brain tumor Mother , AT AGE 63 Bleeding disorder Other CAD (coronary artery disease) Cancer Diabetes Hyperlipidemia Hypertension Lung disease Psychiatric illness Stroke Social History Smoking and tobacco status: current every day smoker smokeless tobacco Alcohol intake: never Marital status: Number of children: 3 Number of grandchildren: 4 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 Head: Normocephalic. Atraumatic. EOM intact. Neck: No JVD. Cardiovascular: RRR. No gallops. No murmurs. Trace pedal edema. Lungs: Clear to auscultation, no use of accessory muscles, no crackles or wheezes. Skin: No jaundice. No rashes. Abdomen: Normal bowel sounds, abdomen soft and nontender. Genito Urinary: Allen Rectal: Rectal exam not performed since no symptoms indicated blood loss. Extremeties: No cyanosis or clubbing. Musculoskeletal: Normal range of motion, no swollen or erythematous joints. Neurological: CN II to XII grossly intact. Moves all 4 extremities. Strength 5/5 in all extremities. Sensation grossly intact. No myoclonus. Data : 03/14/22 13:35 03/14/22 13:35 EKG 1: My Interpretation: SR A&P Assessment and plan (1) Cerebrovascular accident: Acute posteromedial left frontal lobe measuring about 4 mm per head MRI Symptoms again have resolved upon evaluation Carotid US negative for significant stenosis TTE negative for acute findings Anticipate cardiology consultation for NIURKA on 03/15 NPO after midnight MRA head/neck ordered Fall and aspiration precautions PT/OT/ST Neurochecks Telemetry monitoring Continue aspirin Continue Plavix Continue high intensity statin Status: Acute (2) UTI (urinary tract infection): CAUTI Urine culture Follow up urine culture Status: Acute (3) Hypertension: Hold lisinopril and Lasix Monitor BP closely Status: Acute (4) Essential tremor: Continue primidone Status: Acute (5) New onset type 2 diabetes mellitus: Hold metformin SSI Avoid hypoglycemia Status: Acute (6) Urethral stricture: Status post recent cystoscopy with urethral dilation on 03/08 Continue Allen catheter Status: Acute (7) Dyslipidemia (high LDL; low HDL): Continue statin Status: Acute (8) BPH (benign prostatic hyperplasia): Continue Flomax Status: Acute (9) Morbid obesity with BMI of 40.0-44.9, adult: Would benefit from weight loss Status: Acute (10) Tobacco use: Would benefit from cessation Status: Acute Plan DVT ppx: Lovenox Code: Full Code Attestations Medical Necessity Statement*: Patient admitted to observation as his hospitalization is not expected to cross two midnights. Coding Level of Care Code Acute Mathematical Physicist for [facility] Fwd Diagnoses Essential tremor G25.0 New onset type 2 diabetes mellitus E11.9 Cerebrovascular accident I63.9 Urethral stricture N35.919 Dyslipidemia (high LDL; low HDL) E78.5 UTI (urinary tract infection) N39.0 BPH (benign prostatic hyperplasia) N40.0 Morbid obesity with BMI of 40.0-44.9, adult E66.01; Z68.41 Hypertension I10 Tobacco use Z72.0
[2022-03-14 16:46] LABS: Troponin 5 2HR Delta 0.37 ABS# (0-10)
[2022-03-14 18:19] VITALS: BP 153/53; PULSE 80; RESP 18; TEMP 36.7; O2SAT 97
[2022-03-14 18:20] VITALS: BP 153/53; PULSE 80; RESP 18; TEMP 36.7; O2SAT 97
[2022-03-14 18:30] VITALS: BP 153/53; PULSE 80; RESP 18; TEMP 36.7; O2SAT 97
--- NOTE | 2022-03-15 15:55 | DCPLANNER ---
Addendum entered by Krystal Duffy 04/18/22 05:33: assistant office manager was told that patient has been seen several times, the first visit as a new patient on 11/10/21 and most recent on 03/03/22. Patient has a follow up appointment scheduled for 03.02.[address] Rivera, clinic will call and remind patient of the scheduled appointment. Original Note: assistant office manager had message to schedule a follow up appointment for patient with neurology. assistant office manager sent patients information to the front office staff at neurology. Patients information will be printed and reviewed. Clinic will call patient with appointment information.
== END 2022-03-14 18:31 | disposition left against medical advice (07) ==
LOC: ER 16:58 → MEDSURG 17:41
PROVIDERS: Admitting Provider Internal Medicine; Emergency Provider Emergency Medicine; PCP Family Medicine Adult Medicine; Visit Provider Internal Medicine
DX: G25.0 Essential tremor (principal); E11.9 Type 2 diabetes mellitus without complications; I63.9 Cerebral infarction, unspecified; N35.919 Unspecified urethral stricture, male, unspecified site; E78.5 Hyperlipidemia, unspecified; N39.0 Urinary tract infection, site not specified; N40.0 Benign prostatic hyperplasia without lower urinary tract symptoms; E66.01 Morbid (severe) obesity due to excess calories; Z68.41 Body mass index [BMI] 40.0-44.9, adult; I10 Essential (primary) hypertension; F41.9 Anxiety disorder, unspecified; Z79.84 Long term (current) use of oral hypoglycemic drugs; Z79.82 Long term (current) use of aspirin; F17.290 Nicotine dependence, other tobacco product, uncomplicated; Z53.29 Procedure and treatment not carried out because of patient's decision for other reasons
CPT/HCPCS: 80053; 81001; 83690; 84484; 85025; 87086; 93005; 96365; 99285; G0378; J0696

== ENCOUNTER → 2022-04-01 13:16 | Outpatient (BNVA) | payer MEDICARE, SELFPAY | PROVIDERS: PCP Family Medicine Adult Medicine; Visit Provider Urology | DX: N35.919 Unspecified urethral stricture, male, unspecified site (principal) | CPT/HCPCS: 52000; 99213 ==

== ENCOUNTER → 2022-04-07 10:31 | Outpatient (BNVA) | payer MEDICARE, SELFPAY | PROVIDERS: PCP Family Medicine Adult Medicine; Visit Provider Nurse Practitioner Family | DX: N35.919 Unspecified urethral stricture, male, unspecified site (principal) | CPT/HCPCS: 51700; 99213 ==

== ENCOUNTER → 2022-04-22 11:13 | Outpatient (BNVA) | payer MEDICARE, SELFPAY | PROVIDERS: PCP Family Medicine Adult Medicine; Visit Provider Specialist | DX: Z71.89 Other specified counseling (principal); M17.0 Bilateral primary osteoarthritis of knee | CPT/HCPCS: 20610; J1100; J2795; J3301 ==

== ENCOUNTER → 2022-06-08 09:53 | Outpatient (BNVA) | payer MEDICARE, SELFPAY | PROVIDERS: PCP Family Medicine Adult Medicine; Visit Provider Urology | DX: N35.919 Unspecified urethral stricture, male, unspecified site (principal) | CPT/HCPCS: 51798; 99213 ==

== ENCOUNTER → 2022-06-25 10:12 | Outpatient (BNVA) | payer MEDICARE, SELFPAY | PROVIDERS: PCP Family Medicine Adult Medicine; Visit Provider Nurse Practitioner | DX: I67.2 Cerebral atherosclerosis (principal); Z86.73 Personal history of transient ischemic attack (TIA), and cerebral infarction without residual deficits | CPT/HCPCS: 99203; 99214 ==

== ENCOUNTER → 2022-07-02 10:14 | Outpatient (BNVA) | payer MEDICARE, SELFPAY | PROVIDERS: PCP Family Medicine Adult Medicine; Visit Provider Family Medicine Adult Medicine | DX: I10 Essential (primary) hypertension (principal); I63.9 Cerebral infarction, unspecified; E66.01 Morbid (severe) obesity due to excess calories; Z68.41 Body mass index [BMI] 40.0-44.9, adult; E11.9 Type 2 diabetes mellitus without complications; E78.5 Hyperlipidemia, unspecified; Z91.89 Other specified personal risk factors, not elsewhere classified | CPT/HCPCS: 80053; 80061; 83036; 86900 ==

== ENCOUNTER → 2022-07-29 10:57 | Outpatient (BNVA) | payer MEDICARE, SELFPAY | PROVIDERS: PCP Family Medicine Adult Medicine; Visit Provider Specialist | DX: M17.0 Bilateral primary osteoarthritis of knee (principal) | CPT/HCPCS: 20610; J1100; J2795; J3301 ==

== ENCOUNTER → 2022-10-28 10:56 | Outpatient (BNVA) | payer MEDICARE, SELFPAY | PROVIDERS: PCP Family Medicine Adult Medicine; Visit Provider Specialist | DX: M17.0 Bilateral primary osteoarthritis of knee (principal); Z71.89 Other specified counseling | CPT/HCPCS: 20610; J1100; J2795; J3301 ==

== ENCOUNTER → 2022-12-13 13:05 | Outpatient (BNVA) | payer MEDICARE, SELFPAY | PROVIDERS: PCP Family Medicine Adult Medicine; Visit Provider Urology | DX: N35.919 Unspecified urethral stricture, male, unspecified site (principal); R35.81 Nocturnal polyuria; N40.1 Benign prostatic hyperplasia with lower urinary tract symptoms; N13.8 Other obstructive and reflux uropathy | CPT/HCPCS: 51798; 99214 ==

== ENCOUNTER 2023-02-08 06:00 | Outpatient (RCR) | payer MEDICARE, SELFPAY | END 2023-02-27 23:59 | disposition home or self-care (01) | LOC: WPT 06:00 | PROVIDERS: Visit Provider Orthopaedic Surgery | DX: Z47.1 Aftercare following joint replacement surgery (principal); Z96.651 Presence of right artificial knee joint | CPT/HCPCS: 97110; 97112; 97163; 97530 ==

== ENCOUNTER 2023-02-28 06:00 | Outpatient (RCR) | payer MEDICARE, SELFPAY | END 2023-03-30 23:59 | disposition home or self-care (01) | LOC: WPT 06:00 | PROVIDERS: Visit Provider Orthopaedic Surgery | DX: Z47.1 Aftercare following joint replacement surgery (principal); Z96.651 Presence of right artificial knee joint | CPT/HCPCS: 97110; 97112; 97530 ==

== ENCOUNTER 2023-03-31 06:00 | Outpatient (RCR) | payer MEDICARE, SELFPAY | END 2023-04-29 23:59 | disposition home or self-care (01) | LOC: WPT 06:00 | PROVIDERS: Visit Provider Orthopaedic Surgery | DX: Z47.1 Aftercare following joint replacement surgery (principal); Z96.651 Presence of right artificial knee joint | CPT/HCPCS: 97110; 97112; 97530 ==

== ENCOUNTER 2023-05-24 06:00 | Outpatient (RCR) | payer MEDICARE, SELFPAY | END 2023-05-30 23:59 | disposition home or self-care (01) | LOC: WPT 06:00 | PROVIDERS: Visit Provider Orthopaedic Surgery | DX: Z47.1 Aftercare following joint replacement surgery (principal); Z96.652 Presence of left artificial knee joint | CPT/HCPCS: 97110; 97112; 97162; 97530 ==

== ENCOUNTER 2023-05-31 06:00 | Outpatient (RCR) | payer MEDICARE, SELFPAY | END 2023-06-30 23:59 | disposition home or self-care (01) | LOC: WPT 06:00 | PROVIDERS: Visit Provider Orthopaedic Surgery | DX: Z47.1 Aftercare following joint replacement surgery (principal); Z96.652 Presence of left artificial knee joint | CPT/HCPCS: 97110; 97112; 97530 ==

== ENCOUNTER → 2023-06-24 13:47 | Outpatient (BNVA) | payer MEDICARE, SELFPAY | PROVIDERS: Visit Provider Family Medicine Adult Medicine | DX: E11.9 Type 2 diabetes mellitus without complications (principal); I10 Essential (primary) hypertension; E78.5 Hyperlipidemia, unspecified; N40.1 Benign prostatic hyperplasia with lower urinary tract symptoms; F41.8 Other specified anxiety disorders; N35.919 Unspecified urethral stricture, male, unspecified site; R35.81 Nocturnal polyuria; G25.0 Essential tremor; N40.0 Benign prostatic hyperplasia without lower urinary tract symptoms; I63.9 Cerebral infarction, unspecified; Z91.89 Other specified personal risk factors, not elsewhere classified; E66.01 Morbid (severe) obesity due to excess calories; Z68.41 Body mass index [BMI] 40.0-44.9, adult; Z96.653 Presence of artificial knee joint, bilateral; R60.0 Localized edema | CPT/HCPCS: 80053; 83036; 84443; 85025 ==

== ENCOUNTER 2023-07-01 06:00 | Outpatient (RCR) | payer MEDICARE, SELFPAY | END 2023-07-30 23:59 | disposition home or self-care (01) | LOC: WPT 06:00 | PROVIDERS: Visit Provider Orthopaedic Surgery | DX: Z47.1 Aftercare following joint replacement surgery (principal); Z96.652 Presence of left artificial knee joint | CPT/HCPCS: 97110; 97112; 97530 ==

== ENCOUNTER → 2024-05-15 15:01 | Outpatient (BNVA) | payer MEDICARE, SELFPAY | PROVIDERS: Visit Provider Family Medicine Adult Medicine | DX: I10 Essential (primary) hypertension (principal) | CPT/HCPCS: 80053; 84443; G0103 ==

== ENCOUNTER 2024-11-05 16:43 | Outpatient (CLI) | payer MEDICARE, SELFPAY ==
--- NOTE | 2024-11-05 16:50 | XRR_ITS ---
PROCEDURE INFORMATION: Exam: XR Chest Exam date and time: 11/05/2024 4:55 PM Age: 74 years old Clinical indication: Patient HX: Wheezing and SOB while walking and sleeping x 2 mo; Additional info: Orthopnea TECHNIQUE: Imaging protocol: Radiologic exam of the chest. Views: 2 views. COMPARISON: CR XR chest 1V portable [id number] 10/18/2021 7:53 PM FINDINGS: Lungs: Unremarkable. No consolidation. Pleural spaces: Unremarkable. No pleural effusion. No pneumothorax. Heart/Mediastinum: Unremarkable. No cardiomegaly. Bones/joints: Unremarkable. XR/XR chest 2V* [id number] IMPRESSION: No acute findings.
== END 2024-11-05 16:44 | disposition home or self-care (01) ==
LOC: RAD 16:47
PROVIDERS: PCP Family Medicine; Visit Provider Family Medicine
DX: R06.01 Orthopnea (principal); I10 Essential (primary) hypertension; E78.5 Hyperlipidemia, unspecified; E11.69 Type 2 diabetes mellitus with other specified complication; E66.01 Morbid (severe) obesity due to excess calories; N40.1 Benign prostatic hyperplasia with lower urinary tract symptoms; I63.9 Cerebral infarction, unspecified; R60.0 Localized edema; G47.30 Sleep apnea, unspecified; G25.0 Essential tremor
CPT/HCPCS: 71046; 80053; 80061; 82043; 82607; 83036; 83880; 84439; 84443; 85025

== ENCOUNTER → 2025-08-01 10:39 | Outpatient (BNVA) | payer MEDICARE, SELFPAY | PROVIDERS: PCP Family Medicine; Visit Provider Family Medicine | DX: E11.69 Type 2 diabetes mellitus with other specified complication (principal); E66.01 Morbid (severe) obesity due to excess calories; E78.5 Hyperlipidemia, unspecified; I50.30 Unspecified diastolic (congestive) heart failure; I10 Essential (primary) hypertension; I63.9 Cerebral infarction, unspecified; R60.0 Localized edema; Z72.0 Tobacco use; Z11.59 Encounter for screening for other viral diseases | CPT/HCPCS: 80053; 83036; 83880; 85025; 86803 ==

== ENCOUNTER → 2025-09-10 14:11 | Outpatient (BNVA) | payer MEDICARE, SELFPAY | PROVIDERS: PCP Family Medicine; Visit Provider Family Medicine | DX: R19.7 Diarrhea, unspecified (principal) | CPT/HCPCS: 83630; 83690; 86003; 86008; 87493 ==